=== PATIENT | male | born 1940 | race Caucasian/White ===

== ENCOUNTER 2017-08-18 10:37 | Inpatient (IN) | payer MEDICARE, MEDICAID ==
[~2017-08-18] VITALS: Ht 193 cm; Wt 114.8 kg
[~2017-08-18 10:37] MED LIST: ALEVE220 M2 PO; ATENOLOL25 MG PO; AUGMENTIN875TAB OR; AUGMENTIN875TAB PO; DAPSONE100 MG PO; DICLOFENAC SODI75 MG PO; FISH OIL1000 MG PO; FLORASTOR250 M1 PO; GAUZE; GLIMEPIRIDE4 MG PO; INSULIN; LANTUS100 MG/ML; LANTUS100 MG/ML SC; LISINOPRIL10 MG PO; MECLIZINE12.5 MG PO; METFORMIN500 MG PO; MULTIVITAMI9 PO; PERCOCET 5/325M1 TAB PO; SANTYL250 MG/GM EX; SILVADENE1 % EX; SIMVASTATIN10 MG PO; ZITHROMAX500 MG PO; [UNRECOGNIZED DRUG - OTHER]; [UNRECOGNIZED DRUG - OTHER] PO
--- NOTE | 2017-08-18 10:41 | NUR ---
PT TO CT VIA STRETCHER.
[2017-08-18 11:17] LABS: HEMATOCRIT 45.3 % (39.0-50.0); HEMOGLOBIN 15.2 g/dl (14.0-18.0); IMMATURE GRANULOCYTES 0.4 % (0.0-1.0); MEAN CELL VOLUME 91.9 fL CALC (80.0-100.0); MEAN CORPUSCULAR HGB 30.8 pG CALC (26.0-32.0); MEAN CORPUSCULAR HGB CONC 33.6 g/L CALC (32.0-36.0); NEUT# 5.8 thou/uL (1.82-7.42); RED BLOOD COUNT 4.93 mill/uL (4.70-6.10); RED CELL DISTRI WIDTH 12.7 % (11.5-15.5)
[2017-08-18 11:37] LABS: ANION GAP 17 (6-22 (CALC)); BUN 17 mg/dL (8-23); BUN/CREATININE RATIO 15 (12-20 (CALC)); CALCIUM 9.6 mg/dL (8.4-10.2); CARBON DIOXIDE 25 mmol/l (22-30); CHLORIDE 107 mmol/l (95-108); CREATININE 1.1 mg/dL (0.7-1.3); GFR > 60 ML/MIN (>=60 (CALC)); GFR FOR AFR.AMER. > 60 ML/MIN (>=60 (CALC)); GLUCOSE 145 mg/dL (82-115); POTASSIUM 4.6 mmol/l (3.5-5.1); SODIUM 143 mmol/l (137-146)
--- NOTE | 2017-08-18 11:41 | NUR ---
TELESTROKE COMPLETED VIA VISUAL AND USE OF TELEPHONE FOR VERBAL COMMUNICATION.
[2017-08-18 11:46] LABS: PROTHROMBIN TIME 10.9 SECONDS (9.0-12.5)
--- NOTE | 2017-08-18 11:53 | NUR ---
PT SEEN TO BE FORGETFUL WITH TELESTROKE EVALUATION, STRUGGLING TO REMEMBER THINGS AND ALSO VAGUE IN ANSWERS. PHYSICIAN AT [facility] RECOMMENDS ADMISSION.
--- NOTE | 2017-08-18 11:53 | NUR ---
SBAR PRINTED TO FLOOR
[2017-08-18] MEDS ORDERED: LANTUS100 UNIT/M SC (12:32)
[2017-08-18] MEDS ORDERED: ATORVASTATIN CA80 MG PO (12:32)
[2017-08-18] MEDS ORDERED: METFORMIN500 MG PO (12:33)
[2017-08-18] MEDS ORDERED: LEVOTHYROXIN50 MCG PO (12:33)
[2017-08-18 13:15] VITALS: BP 175/96
--- NOTE | 2017-08-18 13:15 | NUR ---
PT ARRIVED TO ROOM 291 DX:TIA VIA STRETCHER. PT UP TO BED FROM STRETCHER WITH STANDBY ASSISTANCE. ASSESSMENT COMPLETED. B/P 175/96. TELE MONITOR IN PLACE, AFIB [address] LEVINE ON FLOOR. WILL AWAIT ORDERS. PT ORIENTED TO ROOM AND CALL LIGHT SYSTEM. PT STATES HE IS HUNGRY. WILL CALL [employer] FOR TRAY. WILL COTINUE TO MONITOR. CALL LIGHT IN REACH.
--- NOTE | 2017-08-18 13:25 | NUR ---
PT TAKEN TO ROOM 291 WITHOUT INCIDENT, REPORT WAS TO SHAI.
--- NOTE | 2017-08-18 13:40 | NUR ---
O2 SAT ON ROOM AIR IS 98%.
[2017-08-18 14:55] VITALS: BP 166/89
--- NOTE | 2017-08-18 16:01 | NUR ---
PT C/O BED AND REQUESTING A NEW ONE. PT TRANSFERED TO RECLINER CHAIR FOR CHANGE OF BEDS IN ROOM. ASSISTED STAFF X1 WITH WALKER. RIGHT SIDE WEAKNESS NOTED. PT STATES "IT'S GETTING BETTER." PT REMAINS SEATED IN CHAIR. WILL CONTINUE TO MONITOR. CALL LIGHT IN REACH.
[2017-08-18 17:29] VITALS: BP 189/90
--- NOTE | 2017-08-18 18:17 | NUR ---
B/P 163/90 AT THIS TIME. PT MEDICATED WITH NORVASC 5MG PER DR LEVINE'S ORDER. PT PREVIOUSLY MEDICATED WITH HYDRALAZINE 10MG FOR B/P OF 189/90. PT C/O THAT RIGHT ARM AND LEG "FEEL FUNNY" ASKED PT TO DESCRIBE COMPLAINT. PT DENIES ANY TINGLING, BURNING, NUMBNESS, OR PAIN. PT STATES "FEEL LIKE I DON'T HAVE CONTROL OF THE DAMN THING" BILATERAL GRASPS ARE EQUALLY STRONG. NO CHANGES IN NEURO CHECKS SINCE ADMISSION TO FLOOR. INCREASE IN ANXIETY NOTED. PT ABLE TO FOLLOW COMMAND AND RAISE ARMS WITHOUT ANY DRIFTS. INFORMED PT OF POC IN REGARDS TO B/P. PT VERBALIZES UNDERSTANDING AND WILL NOTIFY STAFF OF ANY CHANGES. WILL CONTINUE TO MONITOR. CALL LIGHT IN REACH.
--- NOTE | 2017-08-18 19:00 | NUR ---
RECEIVED CHANGE OF SHIFT REPORT FROM ARYAN GIBBONS. PATIENT LYING IN BED AND APPEARS NOT TO BE IN ANY APPARENT ACUTE DISTRESS OR DISCOMFORT. DENIES PAIN. WILL CONTINUE TO MONITOR.
[2017-08-18 19:05] VITALS: BP 164/88
--- NOTE | 2017-08-18 19:09 | NUR ---
REPOT GIVEN AT BEDSIDE WITH LEON PRINCE. PT STATES FEELS "SOME RELIEF" TO RIGHT ARM AND LEG. NO C/O AT THIS TIME. POC REVIEWED AGAIN. PT VERBALIZES UNDERSTANDING. CALL LIGHT IN REACH.
[2017-08-18 23:24] VITALS: BP 145/56
--- NOTE | 2017-08-19 | NUR ---
PATIENT LYING IN BED AND APPEARS NOT TO BE IN ANY APPARENT ACUTE DISTRESS. WILL CONTINUE TO MONITOR.
[2017-08-19 03:57] VITALS: BP 150/65
--- NOTE | 2017-08-19 04:00 | NUR ---
NO APPARENT ACUTE CHANDES NOTED IN PATIENT'S CONDITION.
[2017-08-19 05:23] LABS: HEMATOCRIT 42.2 % (39.0-50.0); HEMOGLOBIN 14.4 g/dl (14.0-18.0); MEAN CELL VOLUME 90.6 fL CALC (80.0-100.0); MEAN CORPUSCULAR HGB 30.9 pG CALC (26.0-32.0); MEAN CORPUSCULAR HGB CONC 34.1 g/L CALC (32.0-36.0); RED BLOOD COUNT 4.66 mill/uL (4.70-6.10); RED CELL DISTRI WIDTH 12.6 % (11.5-15.5)
[2017-08-19 05:40] LABS: ANION GAP 13 (6-22 (CALC)); BUN 18 mg/dL (8-23); BUN/CREATININE RATIO 17 (12-20 (CALC)); CALCIUM 9.4 mg/dL (8.4-10.2); CARBON DIOXIDE 25 mmol/l (22-30); CHLORIDE 108 mmol/l (95-108); CREATININE 1.1 mg/dL (0.7-1.3); GFR > 60 ML/MIN (>=60 (CALC)); GFR FOR AFR.AMER. > 60 ML/MIN (>=60 (CALC)); GLUCOSE 101 mg/dL (82-115); MAGNESIUM 1.9 mg/dL (1.6-2.3); POTASSIUM 4.2 mmol/l (3.5-5.1); SODIUM 141 mmol/l (137-146)
[2017-08-19 06:07] LABS: TSH, 3RD GENERATION 6.59 uIU/mL (0.47 - 4.68)
--- NOTE | 2017-08-19 07:00 | NUR ---
RECEIVED BEDSIDE REPORT FROM SURESH QUINTERO. RESTING IN BED WITH EYES CLOSED, AWAKENS EASILY. RESPS EVEN AND UNLABORED ON O2 VIA NC, TELE MONITOR IN PLACE. DENIES PAIN OR DISCOMFORT. PLAN OF CARE DISCUSSED. SAFETY PRECAUTIONS REINFORCED. BED ALARM ON FOR SAFETY. BED IN LOWEST POSITION WITH WHEELS LOCKED. CALL LIGHT WITHIN REACH. WILL CONTINUE TO MONITOR.
[2017-08-19 07:46] VITALS: BP 130/56
--- NOTE | 2017-08-19 09:45 | NUR ---
TO MRI IN STABLE CONDITION VIA WHEELCHAIR ACCOMPANIED BY VOLUNTEER.
--- NOTE | 2017-08-19 10:12 | NUR ---
PHONE CALL FROM AL IN MRI, PT STATES HE "IS TOO BIG FOR THE MACHINE." UNABLE TO PERFORM ORDERED MRI.
--- NOTE | 2017-08-19 10:20 | NUR ---
FROM MRI VIA WHEELCHAIR ACCOMPANIED BY WHEELCHAIR. TRANSFERRED TO BED WITH 2 PERSON ASSIST. RESPS EVEN AND UNLABORED ON ROOM AIR, TELE MONITOR IN PLACE. DENIES PAIN OR DISCOMFORT. CALL LIGHT WITHIN REACH.
--- NOTE | 2017-08-19 10:45 | NUR ---
DR COATS IN WITH PT, NEW ORDERS RECEIVED.
[2017-08-19 11:30] VITALS: BP 102/61
--- NOTE | 2017-08-19 11:35 | NUR ---
TO ULTRASOUND IN STABLE CONDITION VIA WHEELCHAIR ACCOMPANIED BY VOLUNTEER.
--- NOTE | 2017-08-19 12:20 | NUR ---
FROM ULTRASOUND VIA WHEELCHAIR ACCOMPANIED BY VOLUNTEER. ASSISTED TO BED WITH 2 PERSON ASSIST. AT BEDSIDE. LUNCH TRAY SET UP. WILL CONTINUE TO MONITOR.
[2017-08-19 15:20] VITALS: BP 108/50
--- NOTE | 2017-08-19 16:44 | NUR ---
RESTING IN BED WITH EYES CLOSED, AWAKENS EASILY. RESPS EVEN AND UNLABORED ON ROOM AIR, TELE MONITOR IN PLACE. VOICES NO NEEDS AT THIS TIME. BED ALARM ON FOR SAFETY. CALL LIGHT WITHIN REACH. ENCOURAGED PT TO CALL FOR ANY NEEDS.
--- NOTE | 2017-08-19 19:00 | NUR ---
RECEIVED CHANGE OF SNIFT REPORT FROM LEON CANO. PATIENT LYING IN BED AND APPEARS NOT TO BE IN ANY APPARENT ACUTE DISTRESS OR DISCOMFORT. NO VOICED COPLAINTS AT THIS TIME. WILL CONTINUE TO MONITOR.
[2017-08-19 19:05] VITALS: BP 154/92
[2017-08-19 22:23] VITALS: BP 112/64
--- NOTE | 2017-08-20 | NUR ---
PATIENT RESTING QUIETLY WITH EYES CLOSE AND SNORING. RESPIRATION EVEN AND NONLABORED. PRBC INFUSING. NO APPARENT ACUTE DISTRESS NOTED. WILL CONTINUE YO MONITOR.
--- NOTE | 2017-08-20 04:00 | NUR ---
NO APPARENT ACUTE CHANGES NOTED IN PATIENT'S CONDITION.
[2017-08-20 04:46] VITALS: BP 151/85
[2017-08-20 06:09] LABS: HEMATOCRIT 43.2 % (39.0-50.0); HEMOGLOBIN 14.6 g/dl (14.0-18.0); MEAN CELL VOLUME 91.1 fL CALC (80.0-100.0); MEAN CORPUSCULAR HGB 30.8 pG CALC (26.0-32.0); MEAN CORPUSCULAR HGB CONC 33.8 g/L CALC (32.0-36.0); RED BLOOD COUNT 4.74 mill/uL (4.70-6.10); RED CELL DISTRI WIDTH 12.7 % (11.5-15.5)
[2017-08-20 06:27] LABS: ANION GAP 16 (6-22 (CALC)); BUN 21 mg/dL (8-23); BUN/CREATININE RATIO 18 (12-20 (CALC)); CALCIUM 9.7 mg/dL (8.4-10.2); CARBON DIOXIDE 24 mmol/l (22-30); CHLORIDE 106 mmol/l (95-108); CREATININE 1.2 mg/dL (0.7-1.3); GFR 59 ML/MIN (>=60 (CALC)); GFR FOR AFR.AMER. > 60 ML/MIN (>=60 (CALC)); GLUCOSE 136 mg/dL (82-115); POTASSIUM 4.6 mmol/l (3.5-5.1); SODIUM 141 mmol/l (137-146)
--- NOTE | 2017-08-20 07:25 | NUR ---
SHIFT CHANGE REPORT FROM ESTEBAN PRINCE SLEEPING BUT AROUSES TO VERBAL STIMULI, NO C/O DISCOMFORT AT THIS TIME, CALL RASHEED IN REACH.
[2017-08-20 08:16] VITALS: BP 141/72
[2017-08-20 12:00] VITALS: BP 139/78
--- NOTE | 2017-08-20 12:21 | NUR ---
PATIENT STATES HE HAS HAD BILAT DROP FOOT FOR > 5YRS, BUT HAS HAD NEW ONSET OF R EXTREMITY WEAKNESS. HE IS ANXIOUS TO GET "BACK TO NORMAL". SUPINE TO SIT INDEP TO STAND WITH SBA TO RW. AMB 90 FT X 2 WITH V.C.'S FOR INCREASED KNEE EXT AND LESS HYPER KNEE FLXN. UNABLE TO ACTIVELY DORSIFLX EITHER FOOT IN STANDING. ITRANSFERED TO RECLINER, SITTING UPRIGHT. INSTRUCTED IN MARCHING, KNEE EXT AND LATERAL STEP OVERS TO PRACTICE WHILE SITTING UP. LUNCH ARRIVED AND SET UP ON TRAY FOR PATIENT. CALL RASHEED AND PHONE WITHIN REACH.
--- NOTE | 2017-08-20 15:53 | NUR ---
LEFT UNIT FOR PROCEDURE AND RETURNED TO ROOM NOW, SETTLED IN RECLINER, NO C/O DISCOMFORT, SPOUSE AT BEDSIDE, CALL RASHEED IN REACH.
[2017-08-20 16:11] VITALS: BP 120/66
--- NOTE | 2017-08-20 16:55 | NUR ---
Visited pt room during rounds. Pt states that he is doing good and feeling better, not as week as when he first got to ER. Pt's was also in the room and stated that the doctor did come speak to them about new diagnosed AFib, as well as the new medications that he will be taking. Discussed the new meds and what they are for, as well as reviewed home meds. Pt did not have any additional questions or concerns regarding new diagnosis or medications.
[2017-08-20 18:55] VITALS: BP 120/76
--- NOTE | 2017-08-20 21:20 | NUR ---
PT APPEARS TO BE SLEEPING IN SUPINE POSITION;WOKE PT TO COMPLETE ASSESSMENT AND ADMINISTER SCHEDULED MEDICATIONS;PT VOICES NO COMPLAINTS OR CONCERNS;RESPIRATIONS EVEN AND UNLABORED ON RA;RIGHT SIDED WEAKNESS NOTED;#20G TO RAC INFUSING NS @ 80ML/HR WELL;TELE MONITOR IN PLACE;PEDAL PULSES DOPPLERED;CLEAR LUNGS SOUNDS;SKIN INTACT;FALL PRECAUTIONS REINFORCED AND PT EDUCATED TO CALL FOR ASSISTANCE IF NEEDED;CALL LIGHT IN REACH;WILL CONTINUE TO MONITOR
[2017-08-20 23:48] VITALS: BP 122/56
--- NOTE | 2017-08-21 00:40 | NUR ---
PT APPEARS TO BE SLEEPING WITH EYES CLOSED IN SUPINE POSITION;NO S/S OF DISTRESS NOTED;RESPIRATIONS EVEN AND UNLABORED ON RA;IV FLUIDS INFUSING WELL TO RAC;FALL PRECAUTIONS IN PLACE;URINAL AT BEDSIDE;CALL LIGHT IN REACH;WILL CONTINUE TO MONITOR
[2017-08-21 03:40] VITALS: BP 117/61
[2017-08-21 03:50] VITALS: BP 117/61
--- NOTE | 2017-08-21 03:50 | NUR ---
TONY,ER MONITOR REPORTED PT HR TO DROP LOW 36;PT SOUND ASLEEP UPON ENTERING THE ROOM;VS OBTAINED;WOKE PT AND HR IMMEDIATELY INCREASED TO 60;PT VOICES NO PAINS OR DISCOMFORTS;RESPIRATIONS EVEN AND UNLABORED ON RA;PT DENIES ANY NEEDS AT THIS TIME;FALL PRECAUTIONS IN PLACE WITH CALL LIGHT IN REACH;WILL CONTINUE TO MONITOR
[2017-08-21 07:11] VITALS: BP 157/74
--- NOTE | 2017-08-21 07:40 | NUR ---
ASSESSMENT IS COMPLETED: IV SITE IS FREE FROM REDNESS OR EDEMA. TELE MONITOR IN PLACE. NO DISTRESS NOTED. PT STATES "I JUST WANT TO SLEEP". CONTINUE TO OBSERVE AND MONITOR.
[2017-08-21 08:38] VITALS: BP 157/74
--- NOTE | 2017-08-21 08:52 | NUR ---
Pt. refused physical therapy this morning, nurse informed.
[2017-08-21 08:54] LABS: HEMOGLOBIN 13.6 g/dl (14.0-18.0); IMMATURE GRANULOCYTES 0.3 % (0.0-1.0); MEAN CELL VOLUME 91.1 fL CALC (80.0-100.0); NEUT# 5.47 thou/uL (1.82-7.42); RED BLOOD COUNT 4.39 mill/uL (4.70-6.10); RED CELL DISTRI WIDTH 12.7 % (11.5-15.5)
[2017-08-21 09:18] LABS: ANION GAP 14 (6-22 (CALC)); BUN 22 mg/dL (8-23); BUN/CREATININE RATIO 19 (12-20 (CALC)); CALCIUM 9.4 mg/dL (8.4-10.2); CARBON DIOXIDE 24 mmol/l (22-30); CHLORIDE 107 mmol/l (95-108); CREATININE 1.1 mg/dL (0.7-1.3); GFR > 60 ML/MIN (>=60 (CALC)); GFR FOR AFR.AMER. > 60 ML/MIN (>=60 (CALC)); GLUCOSE 144 mg/dL (82-115); MAGNESIUM 1.9 mg/dL (1.6-2.3); POTASSIUM 4.6 mmol/l (3.5-5.1); SODIUM 140 mmol/l (137-146)
--- NOTE | 2017-08-21 12:15 | NUR ---
PT IS SITTING IN THE CHAIR AND VISITING WITH SPOUSE WAITING ON TRANSPORT FOR REHAB, IV SITE IS FREE FROM REDNESS OR EDEMA. TELE MONITOR IN PLACE.
[2017-08-21] MEDS ORDERED: ELIQUIS5 MG PO (13:00)
[2017-08-21] MEDS ORDERED: METO25TAB PO (13:00)
[2017-08-21] MEDS ORDERED: LOSARTAN POT50 MG PO (13:00)
[2017-08-21] MEDS ORDERED: ASPIRIN ADULT L81 M2 PO (13:04)
--- NOTE | 2017-08-21 13:57 | NUR ---
PT BEING TRANSFERRED TO [facility] VIA ACCOMPANIED BY STAFF. IV SITE WAS DISCONTINUED CATHETER INTACT. TELE MONITOR INTACT AND REMOVED ALL INFORMATION GIVEN TO TRANSPORTER. CONTINUE TO OBSERVE AND MONITOR.
--- NOTE | 2017-08-21 14:00 | NUR ---
PT'S IV SITE DISCONTINEUD CATHETER INTACT. NO REDNESS OR EDEMA. ALL PAPERS SENT WITH TRANSPORT FOR PT TO REHAB. ASSISTED BY SECURITY TO GO TO HER CAR. Discharge instructions given. Patient verbalizes understanding of same. Discharged in stable condition via Wheelchair to [facility] with *Other. All belongings sent with pt.
== END 2017-08-21 13:47 | DRG 65 ==
LOC: ED 10:37 → ED-I 11:18 → ED 11:18 → ED-I 11:45 → ED 12:15 → MS2 12:16
PROVIDERS: Family Medicine; Internal Medicine; Nurse Practitioner Family; ADMIT Internal Medicine; ATTEND Internal Medicine
DX: I63.40 Cerebral infarction due to embolism of unspecified cerebral artery (principal); G81.91 Hemiplegia, unspecified affecting right dominant side; E11.65 Type 2 diabetes mellitus with hyperglycemia; I48.91 Unspecified atrial fibrillation; R13.10 Dysphagia, unspecified; E03.9 Hypothyroidism, unspecified; E66.9 Obesity, unspecified; R47.01 Aphasia; R40.2432 Glasgow coma scale score 3-8, at arrival to emergency department; I10 Essential (primary) hypertension; I25.10 Atherosclerotic heart disease of native coronary artery without angina pectoris; M15.9 Polyosteoarthritis, unspecified; E78.5 Hyperlipidemia, unspecified; I65.23 Occlusion and stenosis of bilateral carotid arteries; I65.03 Occlusion and stenosis of bilateral vertebral arteries; F40.240 Claustrophobia; R20.0 Anesthesia of skin; Z95.1 Presence of aortocoronary bypass graft; Z95.820 Peripheral vascular angioplasty status with implants and grafts; Z79.4 Long term (current) use of insulin; Z68.30 Body mass index [BMI] 30.0-30.9, adult; Z91.11 Patient's noncompliance with dietary regimen; Z91.14 Patient's other noncompliance with medication regimen; R27.0 Ataxia, unspecified
CPT/HCPCS: J1160; Q9967

== ENCOUNTER 2018-06-19 10:00 | Outpatient (RCR) | payer MEDICARE, MEDICAID ==
[~2018-06-19 10:00] MED LIST changes: +ASPIRIN ADULT L81 M2 PO; +ATORVASTATIN CA80 MG PO; +ELIQUIS5 MG PO; +LANTUS100 UNIT/M SC; +LEVOTHYROXIN50 MCG PO; +LOSARTAN POT50 MG PO; +METO25TAB PO
== END 2018-07-10 11:35 | disposition home or self-care (01) ==
LOC: PT 10:00
PROVIDERS: ATTEND Psychiatry & Neurology Neurology
DX: R42 Dizziness and giddiness (principal); I63.9 Cerebral infarction, unspecified; R26.89 Other abnormalities of gait and mobility

== ENCOUNTER 2019-05-28 14:15 | Emergency (ER) | payer MEDICARE, MEDICAID ==
[~2019-05-28] VITALS: Ht 193 cm; Wt 110.0 kg
[2019-05-28 16:00] LABS: HEMATOCRIT 40.5 % (39.0-50.0); HEMOGLOBIN 13.5 g/dl (14.0-18.0); IMMATURE GRANULOCYTES 0.3 % (0.0-5.0); MEAN CELL VOLUME 91.8 fL CALC (80.0-100.0); MEAN CORPUSCULAR HGB 30.6 pG CALC (26.0-32.0); MEAN CORPUSCULAR HGB CONC 33.3 g/L CALC (32.0-36.0); NEUT# 8.08 thou/uL (1.82-7.42); RED BLOOD COUNT 4.41 mill/uL (4.70-6.10); RED CELL DISTRI WIDTH 12.4 % (11.5-15.5)
[2019-05-28 16:17] LABS: PROTHROMBIN TIME 10.9 SECONDS (9.0-12.5)
[2019-05-28 16:20] LABS: ANION GAP 13 (6-22 (CALC)); BUN 19 mg/dL (8-23); BUN/CREATININE RATIO 16 (12-20 (CALC)); CARBON DIOXIDE 26 mmol/l (22-30); CHLORIDE 107 mmol/l (95-108); CREATININE 1.2 mg/dL (0.7-1.3); GFR 58 ML/MIN (>=60 (CALC)); GFR FOR AFR.AMER. > 60 ML/MIN (>=60 (CALC)); POTASSIUM 4.9 mmol/l (3.5-5.1); SODIUM 142 mmol/l (137-146)
[2019-05-28 19:42] VITALS: BP 164/75
== END 2019-05-28 19:41 | disposition short-term general hospital (02) ==
LOC: ED 14:15
PROVIDERS: Family Medicine
DX: I63.9 Cerebral infarction, unspecified (principal); R53.1 Weakness; R29.701 NIHSS score 1; M54.2 Cervicalgia; I25.2 Old myocardial infarction; Z86.73 Personal history of transient ischemic attack (TIA), and cerebral infarction without residual deficits
CPT/HCPCS: Q9967

== ENCOUNTER 2019-09-09 09:18 | Observation (INO) | payer MEDICARE, OTHER ==
[~2019-09-09] VITALS: Ht 193 cm; Wt 87.5 kg
--- NOTE | 2019-09-09 09:27 | NUR ---
TO ROOM 9 VIA EMS STRETCHER
--- NOTE | 2019-09-09 09:30 | NUR ---
PT ARRIVED BY EMS WITH COMPLAINTS OF DIARRHEA FOR TWO WEEKS. PT IS AOX4 AND SAYS THAT HE HAS BEEN PASSING ONLY BROWN LIQUID AND HE DOES NOT RECALL WHAT COULD HAVE CAUSED IT SINCE HE DONT THINK ITS SOMETHING HE ATE. HIS ABDOMEN HAS ACTIVE BOWEL SOUNDS AND ABDOMEN NON TENDER AND SOFT. BP WITHIN NORMAL LIMITS. WILL CONTINUE TO MONITOR.
--- NOTE | 2019-09-09 09:30 | NUR ---
PT MADE AWARE OF THE NEED FOR A URINE SAMPLE. PT STATES NOT BEING ABLE TO PROVIDE AT THIS TIME.
[2019-09-09 10:22] LABS: HEMATOCRIT 38.2 % (39.0-50.0); HEMOGLOBIN 12.5 g/dl (14.0-18.0); IMMATURE GRANULOCYTES 0.5 % (0.0-5.0); MEAN CELL VOLUME 91.4 fL CALC (80.0-100.0); MEAN CORPUSCULAR HGB 29.9 pG CALC (26.0-32.0); MEAN CORPUSCULAR HGB CONC 32.7 g/L CALC (32.0-36.0); NEUT# 5.56 thou/uL (1.82-7.42); RED BLOOD COUNT 4.18 mill/uL (4.70-6.10); RED CELL DISTRI WIDTH 13.2 % (11.5-15.5)
--- NOTE | 2019-09-09 10:27 | NUR ---
PT SLEEPING AT THIS TIME. CALL LIGHT WITHIN REACH
[2019-09-09 10:28] LABS: ALBUMIN 3.4 g/dL (3.2-5.0); ALKALINE PHOSPHATASE 54 u/l (38-126); ANION GAP 13 (6-22 (CALC)); BILIRUBIN, TOTAL 0.5 mg/dL (0.0-1.4); BUN 14 mg/dL (8-23); BUN/CREATININE RATIO 13 (12-20 (CALC)); CARBON DIOXIDE 27 mmol/l (22-30); CHLORIDE 100 mmol/l (95-108); GFR > 60 ML/MIN (>=60 (CALC)); GFR FOR AFR.AMER. > 60 ML/MIN (>=60 (CALC)); LIPASE 31 u/l (23-300); MAGNESIUM 1.6 mg/dL (1.6-2.3); SGOT/AST 26 u/l (19-48); SODIUM 137 mmol/l (137-146); TOTAL PROTEIN 6.5 g/dL (6.3-8.2)
--- NOTE | 2019-09-09 11:25 | NUR ---
RECONNECTED PT TO EQUIPMENT, ADJUSTED PT INTO BED, MADE HIM COMFORTABLE. PT PROVIDED URINE SAMPLE. CALL LIGHT WITHIN REACH. WILL CONTINUE TO MONITOR. ADVISED PT OF WAIT TIME
[2019-09-09 12:05] LABS: URINE BILIRUBIN - DIPSTICK NEGATIVE (NEGATIVE); URINE BLOOD DIPSTICK NEGATIVE (NEGATIVE); URINE COLOR YELLOW; URINE GLUCOSE - DIPSTICK NEGATIVE (NEGATIVE); URINE KETONE NEGATIVE (NEGATIVE); URINE LEUK ESTERASE NEGATIVE (NEGATIVE); URINE NITRITE - DIPSTICK NEGATIVE (Negative); URINE PH 5.5 (4.5-8.0); URINE PROTEIN - DIPSTICK NEGATIVE (NEG-TRACE); URINE SPECIFIC GRAVITY <=1.005; URINE UROBILINOGEN - DIPSTICK 0.2 E.U./dL (0.2)
--- NOTE | 2019-09-09 12:30 | NUR ---
PATIENT RESTING AWAITNG RADIOLOY AND LAB RESULTS. PATIENT DENIES ANY PAIN OR DISCOMFORT AT THIS TIME
--- NOTE | 2019-09-09 13:30 | NUR ---
report called to [facility]. pATIENT DENIES ANY PAIN OR DISCOMFORT AT THIS TIME
--- NOTE | 2019-09-09 13:37 | NUR ---
PT TRANSPORTED TO [facility] IN NO DISTRESS AND IN STABLE CONDITION.
--- NOTE | 2019-09-09 13:37 | NUR ---
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 AND REASON FOR ADMISSION, HOWEVER WHILE ASSESSING PATIENT HE HAD A LARGE/LOOSE BROWN BM;PT DENIES ANY CURRENT PAIN OR DISCOMFORTS,PAIN SCALE AND REPORTING EDUCATED;RESPIRATIONS EVEN AND UNLABORED,SHALLOW ON RA,CLEAR LUNG SOUNDS NOTED;ABDOMEN SOFT ON PALPATION AND ACTIVE IN ALL 4 QUADRANTS;STRONG PEDAL PULSES WITH +1 EDEMA NOTED TO BLE;ENCOURAGED ELEVATION OF BLE;EMS #20G TO LEFT WRIST INFUSING ABX WITH EASE, NS TO BE STARTED @ 100ML/HR PER ORDER;FALL AND ALLERGY BAND APPLIED TO RIGHT HAND;PT DENIES ANY ADDITIONAL NEEDS AND IS ENCOURAGED TO CALL FOR ASSISTANCE IF NEEDED;BED IN THE LOWEST POSITION AND BED ALARM ON FOR SAFETY;CALL LIGHT IN REACH;WILL CONTINUE TO MONITOR
[2019-09-09 13:53] VITALS: BP 125/73
[2019-09-09 16:14] VITALS: BP 129/65
--- NOTE | 2019-09-09 18:00 | NUR ---
PT RESTING AT BEDSIDE EATING DINNER;RESPIRATIONS EVEN AND UNLABORED ON RA;PT DENIES ANY CURRENT PAIN OR DISCOMFORTS;IV FLUIDS INFUSING TO LEFT WRIST WITH EASE PER ORDER;ENCOURAGED PT TO CALL FOR ASSISTANCE IF NEEDED;FALL PRECAUTIONS REMAIN IN PLACE WITH BED ALARM ON FOR SAFETY;CALL LIGHT IN REACH;WILL CONTINUE TO MONITOR
--- NOTE | 2019-09-09 19:00 | NUR ---
REPORT FROM HARLEEN BAEZA. PT RESTING IN BED. ALERT AND ORIENTED X2. NO APPARENT DISTRESS NOTED. DENIES ANY PAIN OR DISCOMFORT. DISCUSSED POC. PT VERBALIZED UNDERSTANDING. IV SITE APPEARS HEALTHY. BED ALARM FOR SAFETY. NO CURRENT WANTS OR NEEDS NOTED. CALL LIGHT WITHIN REACH. WILL CONTINUE TO MONITOR.
[2019-09-09 19:09] VITALS: BP 128/52
--- NOTE | 2019-09-09 23:11 | NUR ---
PT RESTING IN BED WITH EYES CLOSED. NO APPARENT DISTRESS NOTED. IV FLUIDS INFUSING WITHOUT DIFFICULTY. CALL LIGHT WITHIN REACH. WILL CONTINUE TO MONITOR.
--- NOTE | 2019-09-10 03:17 | NUR ---
PT ASSISTED UP TO BSC. PT VOIDED WITHOUT DIFFICULTY. ASSISTED BACK TO BED. IV FLUIDS INFUSING WITH EASE. PT DENIES ANY CURRENT WANTS OR NEEDS. CALL LIGHT WITHIN REACH. WILL CONTINUE TO MONITOR.
[2019-09-10 03:46] VITALS: BP 112/53
[2019-09-10 08:00] VITALS: BP 104/58
--- NOTE | 2019-09-10 08:00 | NUR ---
PT IS AWAKE, ALERT, ORIENTED TO SELF AND PLACE. PT UP TO BSC WITH ONE PERSON ASSIST, BEAR WEIGHT WELL BUT IS NOT WELL BALANCED. NO DISTRESS, NO COMPLAINTS, NO FURTHER EPISODES OF DIARRHEA.
--- NOTE | 2019-09-10 12:00 | NUR ---
PT CALLS FOR HELP TO BSC INSTRUCTED, SEEN TO BE ONE PERSON TRANSFER. NO REPORT OF PAIN.
[2019-09-10 16:00] VITALS: BP 156/75
--- NOTE | 2019-09-10 16:00 | NUR ---
PT CONTINUES TO CALL APPROPRIATELY TO USE BSC. NO REPORT OF PAIN OR NAUSEA.
--- NOTE | 2019-09-10 18:38 | NUR ---
PT'S CONTACTED, SHE WILL ARRIVE HERE TOMORROW LATE MORNING TO DISCUSS DISCHARGE PLANS FOR HER .
--- NOTE | 2019-09-10 19:12 | NUR ---
REPORT FROM TARIQ RN. PT SITTING UP IN BED. ALERT AND ORIENTED X2. NO APPARENT DISTRESS NOTED. DENIES ANY PAIN OR DISCOMFORT. IV SITE APPEARS HEALTHY. DISCUSSED POC. PT VERBALIZED UNDERSTANDING. CALL LIGHT WITHIN REACH. WILL CONTINUE TO MONITOR.
[2019-09-10 19:19] VITALS: BP 143/69
--- NOTE | 2019-09-10 23:11 | NUR ---
PT RESTING IN BED WITH EYE CLOSED. NO APPARENT DISTRESS NOTED. CALL LIGHT WITHIN REACH. WILL CONTINUE TO MONITOR.
--- NOTE | 2019-09-11 00:15 | NUR ---
SEVERAL ATTEMPTS TO CHANGE EMS IV SITE. PT REFUSED STATING " I AM GETTING OUT OF HERE TOMORROW" . IV SITE APPEARS HEALTHY, DRESSING CDI AND FLUSHES EASILY. EDUCATION PROVIDED. WILL CONTINUE TO MONITOR.
[2019-09-11 04:15] VITALS: BP 133/71
--- NOTE | 2019-09-11 04:16 | NUR ---
PT RESTING IN BED. NO APPARENT DISTRESS NOTED. PT DENIES ANY PAIN OR DISCOMFORT. CALL LIGHT WITHIN REACH. WILL CONTINUE TO MONITOR.
[2019-09-11 06:12] LABS: HEMATOCRIT 36.3 % (39.0-50.0); HEMOGLOBIN 11.7 g/dl (14.0-18.0); IMMATURE GRANULOCYTES 0.3 % (0.0-5.0); MEAN CELL VOLUME 92.1 fL CALC (80.0-100.0); MEAN CORPUSCULAR HGB 29.7 pG CALC (26.0-32.0); MEAN CORPUSCULAR HGB CONC 32.2 g/L CALC (32.0-36.0); NEUT# 5.22 thou/uL (1.82-7.42); RED BLOOD COUNT 3.94 mill/uL (4.70-6.10); RED CELL DISTRI WIDTH 13.2 % (11.5-15.5)
[2019-09-11 06:24] LABS: ANION GAP 12 (6-22 (CALC)); BUN 9 mg/dL (8-23); BUN/CREATININE RATIO 10 (12-20 (CALC)); CARBON DIOXIDE 24 mmol/l (22-30); CHLORIDE 107 mmol/l (95-108); GFR > 60 ML/MIN (>=60 (CALC)); GFR FOR AFR.AMER. > 60 ML/MIN (>=60 (CALC)); MAGNESIUM 1.7 mg/dL (1.6-2.3); POTASSIUM 3.7 mmol/l (3.5-5.1); SODIUM 140 mmol/l (137-146)
[2019-09-11 07:30] VITALS: BP 110/62
--- NOTE | 2019-09-11 07:30 | NUR ---
ASLEEP ON ROUNDS, AWAKENS TO NAME. ORIENTED TO PERSON AND PLACE. RESP NON-LABORD. LUNGS CLEAR THROUGOUT. ABD SOFT WITH BOWEL SOUNDS. DENIES PAIN. IV IN LEFT WRIST SITE BENIGN, NS AT KVO. DISCUSSED PLAN OF CARE. REINFORCED USE OF NELL RASHEED AND BED CONTROLS. PATIENT VERBALIZES UNDERSTANDING OF TEACHING.
--- NOTE | 2019-09-11 09:46 | NUR ---
PT WAS SEEN THIS AM FOR FUNCTIONAL ACTIVITY AND G.T. HE WAS RELUCTANT TO PARTICIPATE WITH THERAPY AND WAS AGITATED AND YELLING DURING THE COURSE OF TX, COMPLAINING ABOUT MEDICAL STAFFS COMING IN AND OUT OF HIS ROOM TO WORK ON HIM. TRIED TO PACIFY THE PT AND EXPLAINED THAT IT IS NECESSARY FOR THE STAFFS TO CHECK ON HIM HE IS IN THE HOSPITAL BEING TREATED. OBSERVED POOR SAFETY AWARENESS PT STOOD UP WITH MULTIPLE ATTEMPTS. PT AMBULATED IN THE ROOM WITH RW AND CGA WITH APPARENT HIGH STEPPAGE GAIT BILATERALLY. HE REPORTS THAT HE HAS BEEN WALKING THIS WAY FOR SEVERAL YEARS NOW AND HE USES A 2WW OR A 3WW TO AMB. AT THE END OF TX PT WAS STILL AGITATED. THERAPIST PROVIDED SBA HE GETS BACK IN THE BED TO REST. THEREX NOT DISCUSSED DUE TO PT'S REFUSAL TO CONTINUE. [facility] TODAY: 16 POINTS PT WILL BENEFIT FROM HOME HEALTH PHYSICAL THERAPY FOR CONDITIONING AND THEREX EDUCATION.
--- NOTE | 2019-09-11 12:05 | NUR ---
PATIENT IN TO SEE PATIENT. PATIENT AND SPOUSE WAITING FOR DR, HOPING PATIENT WILL BE DC'D TODAY.
[2019-09-11] MEDS ORDERED: CIPROFLOXACN500 MG PO (13:35)
[2019-09-11] MEDS ORDERED: METRONIDAZOL500 MG PO (13:36)
--- NOTE | 2019-09-11 15:10 | NUR ---
Discharge instructions given. Patient verbalizes understanding of same. Discharged in stable condition via Wheelchair to Home with spouse. All belongings sent with pt.
== END 2019-09-11 15:03 | disposition home health service (06) ==
LOC: ED 09:18 → ED-I 11:57 → ED 12:17 → MS2 12:18
PROVIDERS: Nurse Practitioner Family; ADMIT Internal Medicine; ATTEND Internal Medicine
DX: K50.10 Crohn's disease of large intestine without complications (principal); I10 Essential (primary) hypertension; E11.9 Type 2 diabetes mellitus without complications; I25.10 Atherosclerotic heart disease of native coronary artery without angina pectoris; I48.91 Unspecified atrial fibrillation; E03.9 Hypothyroidism, unspecified; M89.49 Other hypertrophic osteoarthropathy, multiple sites; I25.2 Old myocardial infarction; Z87.891 Personal history of nicotine dependence; Z79.4 Long term (current) use of insulin; Z95.1 Presence of aortocoronary bypass graft; Z86.73 Personal history of transient ischemic attack (TIA), and cerebral infarction without residual deficits; Z79.01 Long term (current) use of anticoagulants
CPT/HCPCS: G0328; G0378

== ENCOUNTER 2020-02-17 22:21 | Emergency (ER) | payer MEDICARE, OTHER ==
[~2020-02-17 22:21] MED LIST changes: +CIPROFLOXACN500 MG PO; +METRONIDAZOL500 MG PO
[2020-02-17 22:57] LABS: URINE BILIRUBIN - DIPSTICK NEGATIVE (NEGATIVE); URINE BLOOD DIPSTICK LARGE (NEGATIVE); URINE GLUCOSE - DIPSTICK >=1000 mg/dL (NEGATIVE); URINE KETONE NEGATIVE (NEGATIVE); URINE LEUK ESTERASE NEGATIVE (NEGATIVE); URINE PROTEIN - DIPSTICK NEGATIVE (NEG-TRACE)
[2020-02-17] MEDS ORDERED: NEURONTIN100 MG PO (23:00)
[2020-02-17] MEDS ORDERED: TAMSULOSIN HCL0.4 MG PO (23:01)
[2020-02-17] MEDS ORDERED: LASIX40 MG PO (23:02)
[2020-02-17] MEDS ORDERED: FOLIC ACID400 MC1 PO (23:03)
[2020-02-17] MEDS ORDERED: ATORVASTATIN CA80 MG PO (23:03)
[2020-02-17 23:09] LABS: URINE COLOR ORANGE; URINE NITRITE - DIPSTICK NEGATIVE (Negative); URINE RBC 25-50 RBC/hpf (0-5)
[2020-02-17 23:10] LABS: URINE SQUAMOUS EPITHELIAL CELL FEW EPI/hpf (0-FEW)
[2020-02-17 23:34] LABS: CREATININE 1.4 mg/dL (0.7-1.3); POTASSIUM 3.9 mmol/l (3.5-5.1)
[2020-02-17] MEDS ORDERED: TAMSULOSIN0.4 MG PO ×2 (23:49)
[2020-02-17] MEDS ORDERED: BACTRIM DS1 TAB PO ×2 (23:49)
[2020-02-18 00:05] VITALS: BP 134/61
== END 2020-02-18 00:05 | disposition home or self-care (01) ==
LOC: ED 22:21
PROVIDERS: Family Medicine
PROC: 0T9B70Z Drainage of Bladder with Drainage Device, Via Natural or Artificial Opening (ICD-10-PCS; principal; 2020-02-17)
DX: N40.1 Benign prostatic hyperplasia with lower urinary tract symptoms (principal); N13.8 Other obstructive and reflux uropathy; I25.2 Old myocardial infarction; Z95.1 Presence of aortocoronary bypass graft; Z86.73 Personal history of transient ischemic attack (TIA), and cerebral infarction without residual deficits

== ENCOUNTER 2020-02-20 11:37 | Emergency (ER) | payer MEDICARE, OTHER ==
[~2020-02-20 11:37] MED LIST changes: +BACTRIM DS1 TAB PO; +FOLIC ACID400 MC1 PO; +LASIX40 MG PO; +NEURONTIN100 MG PO; +TAMSULOSIN HCL0.4 MG PO; +TAMSULOSIN0.4 MG PO
[2020-02-20 12:20] VITALS: BP 114/70
== END 2020-02-20 12:22 | disposition home or self-care (01) ==
LOC: ED 11:37
DX: T83.091A Other mechanical complication of indwelling urethral catheter, initial encounter (principal); Y84.6 Urinary catheterization as the cause of abnormal reaction of the patient, or of later complication, without mention of misadventure at the time of the procedure

== ENCOUNTER 2020-02-21 10:01 | Emergency (ER) | payer MEDICARE, OTHER ==
[2020-02-21 10:40] VITALS: BP 153/75
== END 2020-02-21 10:42 | disposition home or self-care (01) ==
LOC: ED 10:01
DX: T83.098A Other mechanical complication of other urinary catheter, initial encounter (principal); I25.2 Old myocardial infarction; Y84.6 Urinary catheterization as the cause of abnormal reaction of the patient, or of later complication, without mention of misadventure at the time of the procedure; Z95.1 Presence of aortocoronary bypass graft; Z86.73 Personal history of transient ischemic attack (TIA), and cerebral infarction without residual deficits

== ENCOUNTER 2020-05-23 09:16 | Emergency (ER) | payer MEDICARE, OTHER ==
[~2020-05-23] VITALS: Ht 193 cm; Wt 110.0 kg
[2020-05-23 10:14] LABS: URINE BILIRUBIN - DIPSTICK NEGATIVE (NEGATIVE); URINE BLOOD DIPSTICK LARGE (NEGATIVE); URINE COLOR YELLOW; URINE GLUCOSE - DIPSTICK 250 mg/dL (NEGATIVE); URINE KETONE NEGATIVE (NEGATIVE); URINE PROTEIN - DIPSTICK TRACE mg/dL (NEG-TRACE); URINE SPECIFIC GRAVITY 1.015; URINE UROBILINOGEN - DIPSTICK 0.2 E.U./dL (0.2)
[2020-05-23 10:18] LABS: URINE LEUK ESTERASE MODERATE (NEGATIVE); URINE NITRITE - DIPSTICK POSITIVE (Negative)
[2020-05-23 10:19] LABS: URINE BACTERIA MANY hpf; URINE EPITHELIAL CELLS FEW EPI/hpf (0-FEW)
[2020-05-23] MEDS ORDERED: CEPHALEXIN500 M1 PO ×2 (10:41)
[2020-05-23 11:15] VITALS: BP 108/58
== END 2020-05-23 11:30 | disposition home or self-care (01) ==
LOC: ED 09:16
PROVIDERS: Family Medicine
PROC: 0T9B70Z Drainage of Bladder with Drainage Device, Via Natural or Artificial Opening (ICD-10-PCS; principal; 2020-05-23)
DX: R33.9 Retention of urine, unspecified (principal); N39.0 Urinary tract infection, site not specified; B95.7 Other staphylococcus as the cause of diseases classified elsewhere; E11.9 Type 2 diabetes mellitus without complications; F17.200 Nicotine dependence, unspecified, uncomplicated; I25.2 Old myocardial infarction; Z95.1 Presence of aortocoronary bypass graft; Z79.4 Long term (current) use of insulin; Z86.73 Personal history of transient ischemic attack (TIA), and cerebral infarction without residual deficits

== ENCOUNTER 2020-06-26 16:45 | Emergency (ER) | payer MEDICARE, OTHER ==
[~2020-06-26] VITALS: Ht 193 cm; Wt 100.0 kg
[~2020-06-26 16:45] MED LIST changes: +CEPHALEXIN500 M1 PO
[2020-06-26 18:36] LABS: URINE BILIRUBIN - DIPSTICK NEGATIVE (NEGATIVE); URINE BLOOD DIPSTICK SMALL (NEGATIVE); URINE COLOR YELLOW; URINE GLUCOSE - DIPSTICK >=1000 mg/dL (NEGATIVE); URINE KETONE NEGATIVE (NEGATIVE); URINE LEUK ESTERASE NEGATIVE (NEGATIVE); URINE NITRITE - DIPSTICK NEGATIVE (Negative); URINE PROTEIN - DIPSTICK TRACE mg/dL (NEG-TRACE); URINE SPECIFIC GRAVITY 1.025; URINE UROBILINOGEN - DIPSTICK 0.2 E.U./dL (0.2)
[2020-06-26] MEDS ORDERED: TAMSULOSIN0.4 MG PO ×2 (18:56)
[2020-06-26 19:02] VITALS: BP 160/82
== END 2020-06-26 19:08 | disposition home or self-care (01) ==
LOC: ED 16:45
DX: Z46.6 Encounter for fitting and adjustment of urinary device (principal); E11.9 Type 2 diabetes mellitus without complications; F17.200 Nicotine dependence, unspecified, uncomplicated; I25.2 Old myocardial infarction; Z86.73 Personal history of transient ischemic attack (TIA), and cerebral infarction without residual deficits; Z95.1 Presence of aortocoronary bypass graft

== ENCOUNTER 2020-06-30 12:33 | Emergency (ER) | payer MEDICARE, OTHER ==
[~2020-06-30] VITALS: Ht 193 cm; Wt 118.2 kg
[2020-06-30 13:43] LABS: URINE BILIRUBIN - DIPSTICK NEGATIVE (NEGATIVE); URINE BLOOD DIPSTICK SMALL (NEGATIVE); URINE COLOR YELLOW; URINE GLUCOSE - DIPSTICK >=1000 mg/dL (NEGATIVE); URINE KETONE NEGATIVE (NEGATIVE); URINE LEUK ESTERASE NEGATIVE (NEGATIVE); URINE NITRITE - DIPSTICK NEGATIVE (Negative); URINE PROTEIN - DIPSTICK NEGATIVE (NEG-TRACE); URINE SPECIFIC GRAVITY <=1.005; URINE UROBILINOGEN - DIPSTICK 0.2 E.U./dL (0.2)
[2020-06-30 13:50] LABS: URINE EPITHELIAL CELLS FEW EPI/hpf (0-FEW)
[2020-06-30 14:19] VITALS: BP 138/79
== END 2020-06-30 15:40 | disposition home or self-care (01) ==
LOC: ED 12:33
PROVIDERS: Family Medicine
PROC: 0T9B70Z Drainage of Bladder with Drainage Device, Via Natural or Artificial Opening (ICD-10-PCS; principal; 2020-06-30)
DX: R33.9 Retention of urine, unspecified (principal); E11.9 Type 2 diabetes mellitus without complications; I25.2 Old myocardial infarction; F17.200 Nicotine dependence, unspecified, uncomplicated; Z86.73 Personal history of transient ischemic attack (TIA), and cerebral infarction without residual deficits; Z95.1 Presence of aortocoronary bypass graft

== ENCOUNTER 2020-07-06 11:06 | Emergency (ER) | payer MEDICARE, OTHER ==
[~2020-07-06] VITALS: Ht 193 cm; Wt 90.9 kg
[2020-07-06] MEDS ORDERED: ELIQUIS5 MG PO (12:31)
[2020-07-06] MEDS ORDERED: FINASTERIDE5 MG PO (12:31)
[2020-07-06] MEDS ORDERED: GLIMEPIRIDE4 MG PO (12:31)
[2020-07-06] MEDS ORDERED: ATORVASTATIN CA80 MG PO (12:31)
[2020-07-06] MEDS ORDERED: LEVOTHYROXINE50 MCG PO (12:32)
[2020-07-06] MEDS ORDERED: LASIX 40 MG TAB40 MG PO (12:32)
[2020-07-06] MEDS ORDERED: TAMSULOSIN HCL0.4 MG PO (12:33)
[2020-07-06] MEDS ORDERED: LEVEMIR FL100 UNIT/M SC (12:36)
[2020-07-06 13:10] VITALS: BP 110/80
== END 2020-07-06 13:10 | disposition home or self-care (01) ==
LOC: ED 11:06
PROC: 0T2BX0Z Change Drainage Device in Bladder, External Approach (ICD-10-PCS; principal; 2020-07-06)
DX: T83.89XA Other specified complication of genitourinary prosthetic devices, implants and grafts, initial encounter (principal); N40.0 Benign prostatic hyperplasia without lower urinary tract symptoms; E11.9 Type 2 diabetes mellitus without complications; I25.2 Old myocardial infarction; F17.200 Nicotine dependence, unspecified, uncomplicated; Y84.6 Urinary catheterization as the cause of abnormal reaction of the patient, or of later complication, without mention of misadventure at the time of the procedure; Z86.73 Personal history of transient ischemic attack (TIA), and cerebral infarction without residual deficits; Z95.1 Presence of aortocoronary bypass graft; Z79.4 Long term (current) use of insulin

== ENCOUNTER 2020-07-17 15:05 | Emergency (ER) | payer MEDICARE, OTHER ==
[~2020-07-17] VITALS: Ht 193 cm; Wt 90.0 kg
[~2020-07-17 15:05] MED LIST changes: +FINASTERIDE5 MG PO; +LASIX 40 MG TAB40 MG PO; +LEVEMIR FL100 UNIT/M SC; +LEVOTHYROXINE50 MCG PO
[2020-07-17 16:29] VITALS: BP 165/77
== END 2020-07-17 16:40 | disposition home or self-care (01) ==
LOC: ED 15:05
DX: T83.038A Leakage of other urinary catheter, initial encounter (principal); N40.1 Benign prostatic hyperplasia with lower urinary tract symptoms; E11.9 Type 2 diabetes mellitus without complications; I25.2 Old myocardial infarction; Y84.6 Urinary catheterization as the cause of abnormal reaction of the patient, or of later complication, without mention of misadventure at the time of the procedure; Z86.73 Personal history of transient ischemic attack (TIA), and cerebral infarction without residual deficits; Z79.4 Long term (current) use of insulin; Z95.1 Presence of aortocoronary bypass graft

== ENCOUNTER 2020-07-19 10:13 | Emergency (ER) | payer MEDICARE, OTHER ==
[~2020-07-19] VITALS: Ht 193 cm; Wt 86.0 kg
[2020-07-19 11:44] VITALS: BP 140/81
== END 2020-07-19 11:44 | disposition home or self-care (01) ==
LOC: ED 10:13
DX: T83.031A Leakage of indwelling urethral catheter, initial encounter (principal); E11.9 Type 2 diabetes mellitus without complications; I25.2 Old myocardial infarction; F17.200 Nicotine dependence, unspecified, uncomplicated; Y84.6 Urinary catheterization as the cause of abnormal reaction of the patient, or of later complication, without mention of misadventure at the time of the procedure; Z86.73 Personal history of transient ischemic attack (TIA), and cerebral infarction without residual deficits; Z95.1 Presence of aortocoronary bypass graft; Z79.4 Long term (current) use of insulin

== ENCOUNTER 2020-08-10 20:59 | Observation (INO) | payer MEDICARE, OTHER ==
[~2020-08-10] VITALS: Ht 193 cm; Wt 109.0 kg
--- NOTE | 2020-08-10 21:00 | NUR ---
PT ARRIVED VIA DCFR WITH IVF INFUSING (GIVEN 250 ML BOLUS). PT HAS INDWELLING MAURER WITH THICK/CLOUDY URINE. PT INCONT OF LIQUID DIARRHEA.
[2020-08-10 21:49] LABS: URINE BILIRUBIN - DIPSTICK NEGATIVE (NEGATIVE); URINE BLOOD DIPSTICK MODERATE (NEGATIVE); URINE COLOR YELLOW; URINE GLUCOSE - DIPSTICK NEGATIVE (NEGATIVE); URINE KETONE NEGATIVE (NEGATIVE); URINE PROTEIN - DIPSTICK 30 mg/dL (NEG-TRACE); URINE SPECIFIC GRAVITY 1.015; URINE UROBILINOGEN - DIPSTICK 0.2 E.U./dL (0.2)
[2020-08-10 21:51] LABS: URINE LEUK ESTERASE MODERATE (NEGATIVE); URINE NITRITE - DIPSTICK POSITIVE (Negative)
[2020-08-10 21:52] LABS: URINE BACTERIA FEW hpf; URINE WBC TNTC WBC/hpf (0-5)
[2020-08-10 21:52] LABS: HEMATOCRIT 40.3 % (39.0-50.0); HEMOGLOBIN 13.1 g/dl (14.0-18.0); IMMATURE GRANULOCYTES 0.7 % (0.0-5.0); MEAN CELL VOLUME 90.4 fL CALC (80.0-100.0); MEAN CORPUSCULAR HGB 29.4 pG CALC (26.0-32.0); MEAN CORPUSCULAR HGB CONC 32.5 g/dL CAL (32.0-36.0); NEUT# 11.58 thou/uL (1.82-7.42); RED BLOOD COUNT 4.46 mill/uL (4.70-6.10); RED CELL DISTRI WIDTH 12.9 % (11.5-15.5)
[2020-08-10 22:09] LABS: ALBUMIN 3.6 g/dL (3.2-5.0); ALKALINE PHOSPHATASE 62 u/l (38-126); ANION GAP 10 (6-22 (CALC)); BILIRUBIN, TOTAL 0.7 mg/dL (0.0-1.4); BUN 23 mg/dL (8-23); BUN/CREATININE RATIO 16 (12-20 (CALC)); CARBON DIOXIDE 29 mmol/l (22-30); CHLORIDE 99 mmol/l (95-108); CREATININE 1.4 mg/dL (0.7-1.3); GFR 49 ML/MIN (>=60 (CALC)); GFR FOR AFR.AMER. 59 ML/MIN (>=60 (CALC)); POTASSIUM 4.4 mmol/l (3.5-5.1); SGOT/AST 16 u/l (19-48); SODIUM 133 mmol/l (137-146)
[2020-08-10 22:21] LABS: MYOGLOBIN 154 ng/mL (0 - 121)
--- NOTE | 2020-08-10 22:53 | NUR ---
ED CALLS FOR ROOM ASSIGNMENT, ROOM 270 ASSIGNED TO PT.
--- NOTE | 2020-08-10 23:40 | NUR ---
TELEPHONE REPORT RECEIVED FROM Tony FLORENCE RN IN ED. ROOM 270 PREPARED TO RECEIVE PT.
--- NOTE | 2020-08-10 23:45 | NUR ---
REPORT TO FLOOR.
[2020-08-11 00:07] VITALS: BP 117/58
--- NOTE | 2020-08-11 00:07 | NUR ---
PT ARRIVES TO UNIT AT 0007 VIA WHEEL CHAIR, ACCOMPANIED BY Piper DYER RN. TAKEN TO ROOM 270.
--- NOTE | 2020-08-11 00:08 | NUR ---
TO FLOOR VIA W/C WITH ORIGINAL MAURER. EMPTIED FOR 500 CC.
--- NOTE | 2020-08-11 00:42 | NUR ---
ADMISSION AND PHYSICAL ASSESMENT COMPLETE. PT IS PLEASANT AND COOPERATIVE. DENIES PAIN OR DISCOMFORT. MAURER IN PLACE. PT IS UNABLE TO REPORT WHY HE HAS MAURRE IN PLACE. STATES "I WAS SUPPOSED TO GO TO [place] TOMORROW AND GET IT REMOVED." MAURER OUTPUT IS CLOUDY AND MANLEY COLORED. DRAINING TO GRAVITY. TUBING SECURED, UNKINKED, AND UNOBSTRUCTED. PT DENIES NEEDS AT THIS TIME. REQUEST LIGHTS TURNED OFF AND DOOR CLOSED SO HE CAN SLEEP. CALL RASHEED WITHIN REACH, AGREES TO CALL PRN.
--- NOTE | 2020-08-11 01:51 | NUR ---
PT APPEARS TO BE SLEEPING COMFORTABLY, LAYING IN BED, EYES CLOSED, RESPIRATIONS REGULAR AND UNLABORED. NO APPARENT DISTRESS. CALL RASHEED REMAINS WITHIN REACH.
--- NOTE | 2020-08-11 03:20 | NUR ---
IV SITE FOUND DISLODGED. CATHETER INTACT. DRESSING APPLIED TO SITE. NEW IV SITE STARTED TO R-FA 22G, X1 ATTEMPT. PT TOLERATED WELL.
[2020-08-11 03:46] VITALS: BP 118/72
--- NOTE | 2020-08-11 05:28 | NUR ---
HEMODYNAMICS STABLE. PHYSICAL ASSESMENT REMAINS WITHIN BASELINE WITH NO SIGNIFICANT CHANGES. PT RESTING IN BED COMFORTABLY. DENIES ANY FURTHER NEEDS AT THIS TIME. CALL RASHEED WITHIN REACH, AGREES TO CALL PRN.
[2020-08-11 06:41] LABS: HEMATOCRIT 41.7 % (39.0-50.0); HEMOGLOBIN 13.6 g/dl (14.0-18.0); MEAN CELL VOLUME 90.7 fL CALC (80.0-100.0); MEAN CORPUSCULAR HGB 29.6 pG CALC (26.0-32.0); MEAN CORPUSCULAR HGB CONC 32.6 g/dL CAL (32.0-36.0); RED BLOOD COUNT 4.6 mill/uL (4.70-6.10)
[2020-08-11 06:55] LABS: ANION GAP 12 (6-22 (CALC)); BUN 20 mg/dL (8-23); BUN/CREATININE RATIO 16 (12-20 (CALC)); CALCULATED LDLCHOLESTEROL 133 mg/dL (62-129 (CALC)); CARBON DIOXIDE 27 mmol/l (22-30); CHLORIDE 102 mmol/l (95-108); CHOLESTEROL HDL RATIO 5.7 (<4.4 (CALC)); CREATININE 1.3 mg/dL (0.7-1.3); GFR 53 ML/MIN (>=60 (CALC)); GFR FOR AFR.AMER. > 60 ML/MIN (>=60 (CALC)); HDL CHOLESTEROL 34 mg/dL (>=40); MAGNESIUM 1.9 mg/dL (1.6-2.3); POTASSIUM 4.2 mmol/l (3.5-5.1); SODIUM 137 mmol/l (137-146); TOTAL CHOLESTEROL 195 mg/dl (0-199); TOTAL TRIGLYCERIDES 137 mg/dl (30-149); VLDL CHOLESTROL 27 mg/dl (0-38 (CALC))
[2020-08-11 07:48] VITALS: BP 139/74
--- NOTE | 2020-08-11 07:48 | NUR ---
PATIENT IN BED AWAKE ALERT TO NAME AND PLACE AT THIS TIME. MAURER CATH PATENT AND DRAINING PALE CLOUDY URINE. SIDERAILS UP X2 CALL LIGHT NEAR. PATIENT DENIES ANY PAIN AND STATES IT IS A 0 OUT OF A SCALE OF 0-10. NO OTHER NEEDS VOICED AT THIS TIME.
--- NOTE | 2020-08-11 08:17 | NUR ---
AT BEDSIDE DISCUSSING POC.
--- NOTE | 2020-08-11 12:10 | NUR ---
PATIENT IN BED AT THIS TIME. STATES NO PAIN MAURER PATENT AND DRAINING, SIDERAILS UP X 2 CALL LIGHT NEAR. DENIES ANY NEEDS.
--- NOTE | 2020-08-11 14:25 | NUR ---
PHYSICAL THERAPY AT BEDSIDE WORKING WITH PT.
[2020-08-11 15:25] VITALS: BP 132/63
--- NOTE | 2020-08-11 15:50 | NUR ---
PATIENT IN BED AT THIS TIME. DENIES ANY NEEDS CALL LIGHT NEAR SIDERAILS UP, MAURER PATENT AND DRAINING CLOUDY YELLOW URINE. DENIES ALL OTHER NEEDS.
--- NOTE | 2020-08-11 19:00 | NUR ---
REPORT RECEIVED FROM Rg LUONG RN, CARE OF PT ASSUMED AT THIS TIME.
[2020-08-11 19:10] VITALS: BP 145/80
--- NOTE | 2020-08-11 21:00 | NUR ---
PT RESTING IN BED, WATCHING TV. PHYSICAL ASSESMENT COMPLETE. MAURER CATHETER DRAINING TO GRAVITY. OUTPUT YELLOW, SLIGHTLY CLOUDY. IMPROVED SINCE INITIAL ASSESMENT UPON ADMISSION. TUBING IS SECURED, UNKINKED, AND UNOBSTRUCTED. FINGER STICK GLUCOSE 235 mg/dl. SLIDING SCALE HUMALOG AND SCHEDULED LEVEMIR ADMINISTERED. SCHEDULED MEDICATIONS ADMINISTERED. SEE E-MAR. HS SNACK PROVIDED. PLAN OF CARE REVIEWED, PT VERBLAIZES UNDERSTANDING AND DENIES QUESTIONS. PT DENIES FURTHER NEEDS AT THIS TIME. CALL RASHEED WITHIN REACH, AGREES TO CALL PRN.
--- NOTE | 2020-08-11 21:55 | NUR ---
Felicita BOLAÑOS CALLS FOR BED ASSIGNMENT, ROOM 262 ASSIGNED FOR PT. ROOM 262 PREPARED BY Miles STACY CNA TO RECEIVE PT.
--- NOTE | 2020-08-11 23:05 | NUR ---
TELEPHONE REPORT RECEIVED FROM Tony FLORENCE RN IN ED.
--- NOTE | 2020-08-11 23:15 | NUR ---
PT ARRIVES TO UNIT VIA WC ACCOMPANIED BY Tony FLORENCE RN. PT AMBULATORY TO BED. ORIENTED TO UNIT AND ROOM. CALL RASHEED WITHIN REACH, AGREES TO CALL PRN.
--- NOTE | 2020-08-11 23:25 | NUR ---
RX SUGGEST MERREM 1GM IV Q12H FOR RENAL DOSING. ORDER CLARIFIED W/ Rg MALIK APRN.
--- NOTE | 2020-08-12 00:15 | NUR ---
ADMISSION AND PHYSICAL ASSESMENT COMPLETE. ERYTHEMA TO LLE OUTLINED WITH MARKER. DRESSING TO L GREAT TOE C/D/I. LEFT IN PLACE PENDING WOUND CARE DOCTORS CONSULTATION PER PTS WISHES. PRN ANALGESIC ADMINISTERED FOR PAIN. SEE E-MAR. PLAN OF CARE REVIEWED. PT VERBALIZES UNDERSTANDING AND DENIES QUESTIONS. PT DENIES FURTHER NEEDS AT THIS TIME. CALL RASHEED WITHIN REACH. AGREES TO CALL PRN.
--- NOTE | 2020-08-12 01:00 | NUR ---
PT APPEARS TO BE SLEEPING COMFORTABLY. LAYING IN BED WITH EYES CLOSED. RESPIRATIONS REGULAR AND UNLABORED. NO APPARENT DISTRESS. CALL RASHEED REMAINS WITHIN REACH.
[2020-08-12 04:16] VITALS: BP 135/82
[2020-08-12 05:44] LABS: HEMATOCRIT 42.3 % (39.0-50.0); HEMOGLOBIN 13.6 g/dl (14.0-18.0); MEAN CELL VOLUME 93.8 fL CALC (80.0-100.0); MEAN CORPUSCULAR HGB 30.2 pG CALC (26.0-32.0); MEAN CORPUSCULAR HGB CONC 32.2 g/dL CAL (32.0-36.0); RED BLOOD COUNT 4.51 mill/uL (4.70-6.10); RED CELL DISTRI WIDTH 13.1 % (11.5-15.5)
--- NOTE | 2020-08-12 07:05 | NUR ---
REPORT RECEIVED FROM LEON BENOIT. PT RESTING IN BED. NO S/S OF DISTRESS AT THIS TIME. SAFETY PRECAUTIONS IN PLACE. WILL CONTINUE TO MONITOR.
--- NOTE | 2020-08-12 08:10 | NUR ---
PT RESTING IN BED, ALERT TO SELF, CONFUSED ASKING WHERE HE IS, ATTEMPTED TO REORIENTED PT. PT CALLED PER REQUEST, PT SPOKE WITH HIS . PT ASSISTED TO THE CHAIR AT BEDSIDE. RESPIRATIONS ARE EVEN AND UNLABORED ON RA. LUNGS SOUND CLEAR. PEDAL PULSES ARE STRONG. PT DENIES ANY PAIN AT THIS TIME. PT PROVIDED WITH A WARM BLANKET PER REQUEST. WILL CONTINUE TO MONITOR.
[2020-08-12 08:49] LABS: ANION GAP 11 (6-22 (CALC)); BUN 16 mg/dL (8-23); BUN/CREATININE RATIO 14 (12-20 (CALC)); CARBON DIOXIDE 27 mmol/l (22-30); CHLORIDE 104 mmol/l (95-108); CREATININE 1.1 mg/dL (0.7-1.3); GFR > 60 ML/MIN (>=60 (CALC)); GFR FOR AFR.AMER. > 60 ML/MIN (>=60 (CALC)); MAGNESIUM 1.9 mg/dL (1.6-2.3); POTASSIUM 4.6 mmol/l (3.5-5.1); SODIUM 137 mmol/l (137-146)
[2020-08-12 09:46] VITALS: BP 137/74
[2020-08-12] MEDS ORDERED: ERTAPENEM1 GM IV (10:22)
--- NOTE | 2020-08-12 12:10 | NUR ---
PT RESTING IN BED, ALERT. RESPIRATIONS ARE EVEN AND UNLABORED ON RA. NO S/S OF DISTRESS AT THIS TIME. SAFETY PRECAUTIONS IN PLACE.
[2020-08-12 14:45] VITALS: BP 151/86
--- NOTE | 2020-08-12 15:10 | NUR ---
PT RESTING IN BED, ALERT. PT PROVIDED WITH DISCHARGE INSTRUCTIONS, PT DENIES ANY QUESTIONS AT THIS TIME. IV RFA REMOVED CATHETER INTACT.
--- NOTE | 2020-08-12 15:13 | NUR ---
Discharge instructions given. Patient verbalizes understanding of same. Discharged in stable condition via Taxi to Home with staff. All belongings sent with pt.
== END 2020-08-12 15:11 | disposition home health service (06) ==
LOC: ED 20:59 → ED-I 22:42 → ED 23:09 → MS2 23:10
PROVIDERS: Emergency Medicine; Nurse Practitioner; ADMIT Internal Medicine; ATTEND Internal Medicine
DX: T83.511A Infection and inflammatory reaction due to indwelling urethral catheter, initial encounter (principal); N39.0 Urinary tract infection, site not specified; G93.49 Other encephalopathy; I10 Essential (primary) hypertension; E11.9 Type 2 diabetes mellitus without complications; I48.91 Unspecified atrial fibrillation; N40.1 Benign prostatic hyperplasia with lower urinary tract symptoms; R33.8 Other retention of urine; E03.9 Hypothyroidism, unspecified; I25.10 Atherosclerotic heart disease of native coronary artery without angina pectoris; B96.89 Other specified bacterial agents as the cause of diseases classified elsewhere; Y84.6 Urinary catheterization as the cause of abnormal reaction of the patient, or of later complication, without mention of misadventure at the time of the procedure; Z16.23 Resistance to quinolones and fluoroquinolones; Z86.73 Personal history of transient ischemic attack (TIA), and cerebral infarction without residual deficits; Z95.1 Presence of aortocoronary bypass graft; Z79.4 Long term (current) use of insulin; Z87.891 Personal history of nicotine dependence; Z79.01 Long term (current) use of anticoagulants; Z96.0 Presence of urogenital implants; Z20.828 Contact with and (suspected) exposure to other viral communicable diseases
CPT/HCPCS: J0692; J1335

== ENCOUNTER 2020-08-18 17:44 | Observation (INO) | payer MEDICARE, OTHER ==
[~2020-08-18] VITALS: Ht 193 cm; Wt 107.3 kg
[~2020-08-18 17:44] MED LIST changes: +ERTAPENEM1 GM IV
--- NOTE | 2020-08-18 17:45 | NUR ---
PT TO ROOM VIA EMS STRETCHER FOR TRIAGE
[2020-08-18 18:17] LABS: HEMATOCRIT 38.1 % (39.0-50.0); HEMOGLOBIN 12.4 g/dl (14.0-18.0); IMMATURE GRANULOCYTES 0.5 % (0.0-5.0); MEAN CELL VOLUME 90.1 fL CALC (80.0-100.0); MEAN CORPUSCULAR HGB 29.3 pG CALC (26.0-32.0); MEAN CORPUSCULAR HGB CONC 32.5 g/dL CAL (32.0-36.0); NEUT# 7.8 thou/uL (1.82-7.42); RED BLOOD COUNT 4.23 mill/uL (4.70-6.10); RED CELL DISTRI WIDTH 12.9 % (11.5-15.5)
[2020-08-18 18:23] LABS: URINE BILIRUBIN - DIPSTICK NEGATIVE (NEGATIVE); URINE BLOOD DIPSTICK SMALL (NEGATIVE); URINE COLOR YELLOW; URINE GLUCOSE - DIPSTICK NEGATIVE (NEGATIVE); URINE KETONE NEGATIVE (NEGATIVE); URINE LEUK ESTERASE NEGATIVE (NEGATIVE); URINE NITRITE - DIPSTICK NEGATIVE (Negative); URINE PROTEIN - DIPSTICK TRACE mg/dL (NEG-TRACE); URINE SPECIFIC GRAVITY 1.025; URINE UROBILINOGEN - DIPSTICK 0.2 E.U./dL (0.2)
[2020-08-18 18:25] LABS: URINE WBC 0-2 WBC/hpf (0-5)
[2020-08-18 18:35] LABS: ALBUMIN 3.5 g/dL (3.2-5.0); ALKALINE PHOSPHATASE 67 u/l (38-126); ANION GAP 12 (6-22 (CALC)); BUN 12 mg/dL (8-23); BUN/CREATININE RATIO 10 (12-20 (CALC)); CARBON DIOXIDE 26 mmol/l (22-30); CHLORIDE 99 mmol/l (95-108); CREATININE 1.2 mg/dL (0.7-1.3); GFR 58 ML/MIN (>=60 (CALC)); GFR FOR AFR.AMER. > 60 ML/MIN (>=60 (CALC)); LIPASE 46 u/l (23-300); SODIUM 133 mmol/l (137-146); TOTAL PROTEIN 6.8 g/dL (6.3-8.2)
[2020-08-18 18:40] LABS: BILIRUBIN, TOTAL 0.4 mg/dL (0.0-1.4); SGOT/AST 32 u/l (19-48)
--- NOTE | 2020-08-18 18:51 | NUR ---
REPORT GIVEN TO LEON LIRIANO.
--- NOTE | 2020-08-18 18:58 | NUR ---
HAND OFF REPRT RECEIVED BY BRYNN
--- NOTE | 2020-08-18 19:03 | NUR ---
PATIENT UNABLE TO VERIFY MEDICATION AT THIS TIME PHARMACY CONSULT ENTERED
--- NOTE | 2020-08-18 20:34 | NUR ---
HAND OFF REPORT GIVEN TO NATY, INPATIENT ROOM NOT READY TO RECEIVE PATIENT YET.
--- NOTE | 2020-08-18 21:24 | NUR ---
PT ARRIVED TO FLOOR VIA STRETCHER ACCOMPAINED BY ER STAFF. PT ALERT AND ORIENTED X1. NO APPARENT DISTRES NOTED. MAX ASSIST FROM STRETCHER TO BED. MAURER IN PLACE, PRESENT UPON ARRIVAL TO ED, PT STATES PLACED LAST WEEK. INCONTINENT OF BOWEL AT THIS TIME. LOADER TECHNICIAN IN PLACE. DISCUSSED POC AND SAFETY PRECAUTIONS. PT ORIENTED TO ROOM AND CALL LIGHT SYSTEM. CALL LIGHT WITHIN REACH. WILL CONTINUE TO MONITOR.
--- NOTE | 2020-08-18 21:24 | NUR ---
PT ARRIVED TO FLOOR VIA STRETCHER ACCOMPAINED BY ER STAFF. PT ALERT AND ORIENTED. NO APPARENT DISTRES NOTED. MAX ASSIST FROM STRETCHER TO BED. MAURER IN PLACE, PRESENT UPON ARRIVAL TO ED, PT STATES PLACED LAST WEEK. INCONTINENT OF BOWEL AT THIS TIME. OIL HOUSE ATTENDANT IN PLACE. DISCUSSED POC AND SAFETY PRECAUTIONS. PT ORIENTED TO ROOM AND CALL LIGHT SYSTEM. CALL LIGHT WITHIN REACH. WILL CONTINUE TO MONITOR.
[2020-08-18 21:30] VITALS: BP 116/60
[2020-08-18 23:41] VITALS: BP 153/64
--- NOTE | 2020-08-18 23:43 | NUR ---
PT INCONTINENT OF BOWELS. LARGE LOOSE BROWN BM NOTED. LINEN CHANGE AND PERICARE PROVIDED. PT DENIES ANY PAIN OR DISCOMFORT. CALL LIGHT WITHIN REACH. WILL CONTINUE TO MONITOR.
--- NOTE | 2020-08-19 03:04 | NUR ---
PT RESTING IN BED WITH EYES CLOSED. NO APPARENT DISTRESS NOTED. RESPIRATIONS EVEN AND UNLABORED. DRIVER'S LICENSE EXAMINER IN PLACE. MAURER PATENT DRAINING TO GRAVITY. CALL LIGHT WITHIN REACH. WILL CONTINUE TO MONITOR.
[2020-08-19 04:25] VITALS: BP 147/64
--- NOTE | 2020-08-19 05:10 | NUR ---
PT HAD X3 WATERY STOOL WITH FOUL ODOR NOTED. SAMPLE OBTAINED AND SENT TO LAB AT THIS TIME. WILL NOTIFY PHYSICIAN.
--- NOTE | 2020-08-19 05:10 | NUR ---
PT HAD X3 WATERY STOOL WITH FOWL ODOR NOTED. SAMPLE OBTAINED AND SENT TO LAB AT THIS TIME. WILL NOTIFY PHYSICIAN.
[2020-08-19 05:53] LABS: HEMOGLOBIN 12.1 g/dl (14.0-18.0); IMMATURE GRANULOCYTES 0.5 % (0.0-5.0); MEAN CELL VOLUME 90.2 fL CALC (80.0-100.0); MEAN CORPUSCULAR HGB 29.5 pG CALC (26.0-32.0); MEAN CORPUSCULAR HGB CONC 32.7 g/dL CAL (32.0-36.0); NEUT# 7.89 thou/uL (1.82-7.42); RED BLOOD COUNT 4.1 mill/uL (4.70-6.10)
[2020-08-19 05:57] LABS: ALBUMIN 3.1 g/dL (3.2-5.0); ALKALINE PHOSPHATASE 62 u/l (38-126); ANION GAP 11 (6-22 (CALC)); BILIRUBIN, TOTAL 0.4 mg/dL (0.0-1.4); BUN 10 mg/dL (8-23); BUN/CREATININE RATIO 9 (12-20 (CALC)); CARBON DIOXIDE 25 mmol/l (22-30); CHLORIDE 103 mmol/l (95-108); CREATININE 1.1 mg/dL (0.7-1.3); GFR > 60 ML/MIN (>=60 (CALC)); GFR FOR AFR.AMER. > 60 ML/MIN (>=60 (CALC)); POTASSIUM 3.7 mmol/l (3.5-5.1); SGOT/AST 32 u/l (19-48); SODIUM 135 mmol/l (137-146); TOTAL PROTEIN 6.3 g/dL (6.3-8.2)
[2020-08-19] MEDS ORDERED: LEVOTHYROXIN100 MCG PO (07:40)
[2020-08-19] MEDS ORDERED: GABAPENTIN300 M2 PO (07:40)
[2020-08-19] MEDS ORDERED: LEVEMIR100 UNIT/M SC (07:41)
[2020-08-19] MEDS ORDERED: ATORVASTATIN CA40 MG PO (07:41)
[2020-08-19] MEDS ORDERED: LOPRESSOR25 MG PO (07:42)
[2020-08-19] MEDS ORDERED: SOD CHLORIDE1 GM PO (07:43)
[2020-08-19] MEDS ORDERED: TAMSULOSIN HCL0.4 MG PO (07:44)
[2020-08-19] MEDS ORDERED: AMARYL4 MG PO (07:44)
[2020-08-19] MEDS ORDERED: ELIQUIS5 MG PO (07:45)
[2020-08-19 08:00] VITALS: BP 123/66
--- NOTE | 2020-08-19 08:00 | NUR ---
REPORT RECEIVED FROM ARYAN ALFONSO. PT RESTING IN BED SEMI FOWLERS; ALERT TO PERSON AND PLACE; OTHERWISE CONFUSED. DENIES PAIN AND SOB. ON AIR[place]ORNE/CONTACT PRECAUTIONS PENDING COVID SWAB; PLACED ON CONTACT PLUS PRECAUTIONS AT THIS TIME FOR CDIFF RESULTS. DENIES PAIN. RESPIRATIONS EVEN AND UNLABORED ON ROOM AIR; SPO2 97%. POC REVIEWED; PT ENCOURAGED TO VERBALIZE CONCERNS; STATES THAT HE WANTS TO GO HOME. SAFETY MEASURES IN PLACE INCLUDING BED ALARM. CALL LIGHT WITHIN REACH.
--- NOTE | 2020-08-19 08:30 | NUR ---
PT ATTEMPTING TO GET OUT OF BED ADAMENT THAT HE WAS LEAVING AND GOING HOME; ASSISTED BACK INTO BED AFTER SEVERAL VERBAL CUES AND INSTRUCTIONS; REMINDED OF BENEFITS TO HOSPITAL STAY. TELE REAPPLIED AFTER PT REMOVED; WARM BLANKET PROVIDED. DR. COATS AND ALVERTO VÁZQUEZ NOW AT BEDSIDE TO DISCUSS POC. CALL LIGHT REVIEWED AND WITHIN REACH.
--- NOTE | 2020-08-19 10:28 | NUR ---
EILEEN, , CALLED FOR UPDATE. QUESTIONS ANSWERED TO SATISFACTION.
[2020-08-19 10:30] VITALS: BP 102/43
--- NOTE | 2020-08-19 12:50 | NUR ---
PT INCONTINENT OF LARGE LOOSE BM; HYGIENE PROVIDED AND PT IMMEDIATELY INCONTINENT OF ANOTHER BM; PT STATES THAT HE DOESN'T REALIZE HE HAS TO MOVE HIS BOWELS UNTIL IT IS HAPPENING. PT UNABLE TO REPORT WHEN HIS MAURER WAS LAST CHANGED; CHRONIC MAURER REMOVED AND NEW 16F MAURER PLACED AT THIS TIME; IMMEDIATE RETURN OF CLEAR YELLOW URINE; LEG STRAP APPLIED TO RIGHT THIGH.
[2020-08-19 15:30] VITALS: BP 107/59
--- NOTE | 2020-08-19 17:00 | NUR ---
IV TO RFA REMOVED WITH CATHETER INTACT AND PT TOLERATED WELL. NEW 22G IV STARTED TO LFA; APPEARS HEALTHY AND FLUSHES. PT HAS NO REQUESTS OR CONCERNS AT THIS TIME. NO FURTHER ATTEMPTS TO LEAVE; COOPERATIVE AND PLEASANT. BED ALARM REMAINS IN PLACE.
--- NOTE | 2020-08-19 18:00 | NUR ---
PT SITTING UP TALKING TO ON THE PHONE. CEFEPIME INFUSING AT THIS TIME.
--- NOTE | 2020-08-19 20:00 | NUR ---
RECIEVED REPORT FROM LEON GARCIA. PT RESTING IN SEMIF OWLERS POSITION UPON ENTERING ROOM. INTRODUCED SELF TO PT AND DISCUSSED POC. PT IS A/O X2 AND ABLE TO VOICE NEEDS. ASSESSMENT AND VITALS COMPLETED.PT PRESENTS WITH TEM OF 99.2, TYLENOL ADMINISTERED. RESPIRATIONS ARE EVEN AND UNLABORED ON ROOM AIR. LUNG SOUNDS ARE CLEAR. HEART RHYTHM IS NORMAL WITH TELE IN PLACE, AFIB 88 PER ER MONTORING. RADIAL PULSES STRONG. PEDAL PULSES WEAK. #22H IN LW FLUSHED, SITE APPEARS HEALTHY AND PATENT. PT DENIES ANY PAIN AT THIS TIME. GULCOSE RESULTING IN 105, NO COVERAGE NEEDED. PT INCONTIENT OF BOWEL AT THIS TIME. ASSISTED PT GETTING CLEANED UP FROM WRITTER AND NORBERT BLOCK. REDDENED BUTTOCK AND SCROTUM NOTED, BARRIER CREAM APPLIED. PT TOLERATED WELL. SKIN REMAINS WARM AND DRY WITH NO BREAKDOWN NOTED. PT PRESENTS WITH CHRONIC MAURER CATHATER IN PLACE. TUBING UN OBSTRUCTED. PT DENIES ANY PAIN AT THIS TIME. ALL SAFETY PRECAUTIONS ARE IN PLACE WITH BED ALARM ACTIVATED WELL CONTINUE TO MONITOR
[2020-08-19 20:10] VITALS: BP 116/47
--- NOTE | 2020-08-19 21:54 | NUR ---
REASSESSMENT OF TEM RESULTING IN 98.3. REPIRATIONS REMAINS EVEN AND UNLABROED ON ROOM AIR. NO SIGNS OF DISTRESS NOTED. ALL SFAETY AND ISOLATION PRECAUTIONS ARE IN PLACE WITH CALL LIGHT IN REACH.W ILL CONTINUE TO MONITOR
--- NOTE | 2020-08-19 23:40 | NUR ---
WRITTER INFORMED BY TELE MONITORING THAT PT HR WAS DROPPING INTO 30'S. PT SLEEPING IN SEMI FOWLERS POSITION. RESPIRATIONS EVEN AND UNLABORED WITH NO DISTRESS. PT EASY TO AWAKEN. PT DENIES ANY DISTRESS. ALL SFATEY PRECAUTIONS REMAINS IN PLACE WITH CONTACT PLUS PRECAUTIONS IN PLACE. WILL CONTINUE TO MONITOR
[2020-08-20] VITALS (8 sets, daily range): BP systolic 91–161; BP diastolic 47–86
--- NOTE | 2020-08-20 00:55 | NUR ---
PT SLEEPING IN SEMI FOWLERS POSITION. RESPIRATIONS ARE EVEN AND UNLABORED ON ROOM AIR. NO SIGNS OF ANY DISTRESS NOTED. ALL SAFTEY AND CONTACT PLUS PRECAUTIONS IN PLACE. WILL CONTINUE TO MONITOR
--- NOTE | 2020-08-20 01:30 | NUR ---
INFORMED THAT PT HR CONTINUE TO DROPING IN 29. PT SLEEPING IN SEMI FOLWERS POSITION. PT EASE TO AWAKEN. PT STATES " IM TIRED!" NO SIGNS OF ANY DISTRESS NOTED. WILL CONTINUE TO MONITOR
--- NOTE | 2020-08-20 01:34 | NUR ---
ATTEMPTED TO CALL MD TO NOTIFY OF PT HR. NO ANSWER. VOICE MAIL LEFT. WILL CONTINUE TO MONITOR
--- NOTE | 2020-08-20 01:36 | NUR ---
DR COATS NOTIFED OF PT LOW HR. NO NEW ORDERS OBTAINED.TELE MONITORING IN PLACE. WILL CONTINUE TO MONITOR
--- NOTE | 2020-08-20 04:08 | NUR ---
PT SLEEPING IN LOW FOLWERS POSITION. RESPIRATIONS ARE EVEN AND UNLABORED ON ROOM AIR. NO SIGNS OF ANY DISTRESS. TELE MONITORING IN PLACE, AFIB 43 PER ER MONITORING. ALL SAFETY PRECAUTIONS ARE IN PLACE WITH CALL LIGHT IN REACH. AIR/CONTACT PLUS PRECAUTIONS IN REACH. WILL CONTINUE TO MONITOR
--- NOTE | 2020-08-20 06:44 | NUR ---
REPORTED GLUCOSE RESULTING 69. ORANGE JUICE WITH SUGAR ADMINISTERED.RESPIRATIONS ARE EVEN AND UNLABORED ON ROOM AIR. MO SIGNS OF DISTRESS NOTED. ALL SAFTEY PRECAUTIONS ARE IN PLACE WITH CALL LIGHT IN REACH. WILL CONTINUE TO MONITOR
--- NOTE | 2020-08-20 08:28 | NUR ---
LAMIN FROM THE LAB CALLED WITH POSITIVE COVID RESULTS
--- NOTE | 2020-08-20 09:06 | NUR ---
ER CALLED AND STATE PATIENT HR IS 39. NURSE CHECKED ON PATIENT AND HE WAS ASLEEP. EASY TO AWAKE. PATIENT STATED HE FELT FINE. GURPREET AWARE AND IS D/C BETA BRIE.
--- NOTE | 2020-08-20 17:32 | NUR ---
PATIENT AWAKE AND BOOSTED AND REPOSITIONED. NO COMPLAINTS OR CONCERNS. CALL FROM X4 TODAY
--- NOTE | 2020-08-20 21:00 | NUR ---
PATIENT RESTING IN BED-AWAKE ALERT AND ORIENTED TO PERSON AND PLACE. PATIENT WAS INCONT OF SMALL AMT OF STOOL. PATIENT WAS CLEANED UP AND BARRIER CREAM APPLIED TO REDDENED BUTTOCKS. TURNED AND REPOSITIONED. PADS WERE CHANGED. PATIENT IN NEG PRESSURE ROOM AND ON ISOLATION FOR COVID WELL C-DIFF. ISOLATION MAINTAINED. TELE MONITOR IN PLACE. SALINE LOCK TO LEFT FOREARM INTACT AND HEALTHY AT THIS TIME. BS-93-NO COVERAGE REQUIRED. HS SNACK WAS PROVIDED-OJ, CRACKERS AND PEANUT BUTTER. MAURER CATH PATENT AND DRAINING YELLOW URINE.SAFETY PRECAUTIONS REINFORCED. CALL LIGHT IN REACH. WILL CONT TO MONITOR.
--- NOTE | 2020-08-21 01:00 | NUR ---
PATIENT RESTING IN BED WITH HOB ELEVATED-APPEARS SLEEPING AT THIS TIME WITH EYES CLOSED. RESP ARE EVEN AND UNLABORED. TELE MONITOR IN PLACE. CALL LIGHT IN REACH. WILL CONT TO MONITOR.
--- NOTE | 2020-08-21 05:14 | NUR ---
PATIENT RESTING IN BED AT THIS TIME. INCONT OF SMALL AMT OF BROWN STOOL. PATIENT WAS CLEANED UP AND BARRIER CREAM APPLIED TO BUTTOCKS. PATIENT REMAINS CONFUSED TO TIME AND PLACE. TELE MONITOR IN PLACE. SALINE LOCK TO LEFT FOREARM INTACT. O2 SAT-98% ON ROOM AIR. BP-175/82, HR-86. MAURER PATENT AND DRAINING YELLOW URINE. COVID AND C-DIFF ISOLATION MAINTAINED. CALL LIGHT IN REACH. WILL CONT TO MONITOR.
[2020-08-21 05:20] VITALS: BP 175/82
[2020-08-21 05:56] LABS: HEMATOCRIT 41.4 % (39.0-50.0); HEMOGLOBIN 13.3 g/dl (14.0-18.0); IMMATURE GRANULOCYTES 0.2 % (0.0-5.0); MEAN CORPUSCULAR HGB 28.9 pG CALC (26.0-32.0); MEAN CORPUSCULAR HGB CONC 32.1 g/dL CAL (32.0-36.0); NEUT# 5.5 thou/uL (1.82-7.42); RED BLOOD COUNT 4.6 mill/uL (4.70-6.10); RED CELL DISTRI WIDTH 13.2 % (11.5-15.5)
[2020-08-21 06:35] LABS: ALBUMIN 2.9 g/dL (3.2-5.0); ALKALINE PHOSPHATASE 65 u/l (38-126); ANION GAP 11 (6-22 (CALC)); BILIRUBIN, TOTAL 0.4 mg/dL (0.0-1.4); BUN 13 mg/dL (8-23); BUN/CREATININE RATIO 12 (12-20 (CALC)); CARBON DIOXIDE 26 mmol/l (22-30); CHLORIDE 105 mmol/l (95-108); CREATININE 1.1 mg/dL (0.7-1.3); GFR > 60 ML/MIN (>=60 (CALC)); GFR FOR AFR.AMER. > 60 ML/MIN (>=60 (CALC)); SGOT/AST 35 u/l (19-48); SODIUM 139 mmol/l (137-146); TOTAL PROTEIN 6.3 g/dL (6.3-8.2)
--- NOTE | 2020-08-21 07:00 | NUR ---
SHIFT CHANGE REPORT, PT AWAKE AND ALERT SITTING UP IN BED,TELE MONITOR IN PLACE, MAURER CATHETER IN PLACE WITH CLEAR ORALIA URINE, DENIES PAIN BUT REQUESTING TO SPEAK WITH SPOUSE, ADVISED STAFF WILL CONTACT HER MASON, CALL RASHEED IN REACH AND BED IN LOWEST POSITION.
[2020-08-21 09:18] VITALS: BP 141/61
[2020-08-21 10:30] VITALS: BP 129/70
--- NOTE | 2020-08-21 12:00 | NUR ---
RESTING IN BED, REFUSED LUNCH MEAL TELLING STAFF THEY CAN HAVE HIS MEAL HE DOESNT WANT IT, ALL OKTHER NEEDS ADDRESSED, CALL KATHYA IN REACH.
[2020-08-21 15:00] VITALS: BP 141/72
--- NOTE | 2020-08-21 15:55 | NUR ---
RESTING IN BED, HAS EPISODES OF MILD ANXIETY AT TIMES WHICH RESOLVES WITH VERBAL CUES, WANTING TO SEE SPOUSE.
--- NOTE | 2020-08-21 19:30 | NUR ---
PATIENT RESTING IN BED AT THIS TIME-AWAKE ALERT AND ORIENTEDX2. PATIENT ANXIOUS TO GO HOME WITH HIS . PATIENT IN NEG PRESSURE ROOM AND ON ISOLATION FOR COVID AND C-DIFF. TELE MONITOR IN PLACE. IV SITE TO LEFT FOREARM INTACT. MAURER CATH PATENT AND DRAINING YELLOW URINE. BED ALARM IN PLACE. CALL LIGHT IN REACH. WILL CONT TO MONITOR.
[2020-08-21 20:30] VITALS: BP 150/89
--- NOTE | 2020-08-21 21:30 | NUR ---
[id number]. NO COVERAGE REQUIRED. HS SNACK OF JUICE AND PEANUT BUTTER CRACKER GIVEN. NO COMPLAINTS EXCEPT HE WANTS TO GO HOME. BED ALARM IN PLACE FOR PATIENT SAFETY. CALL LIGHT IN REACH. WILL CONT TO MONITOR.
--- NOTE | 2020-08-21 23:42 | NUR ---
PATIENT RESTING IN BED POSITIONED ON LEFT SIDE. TELE MONITOR IN PLACE. VANCO PO GIVEN ORDERED FOLLOWED BY SIP OF WATER. MAURER PATENT AND DRAINING YELLOW URINE. TELE MONITOR IN PLACE. BED ALARM IN PLACE FOR PATIENT SAFETY. CALL LIGHT IN REACH. WILL CONT TO MONITOR.
[2020-08-22 00:25] VITALS: BP 153/80
--- NOTE | 2020-08-22 02:53 | NUR ---
PATIENT RESTING IN BED-INCONT OF MODERATE AMT OF LOOSE GREENISH/BROWN STOOL. PATIENT WAS CLEANED UP AND PADS WERE CHANGED. PATIENT TURNED AND REPOSITIONED. BARRIER CREAM APPLIED TO REDDENED BUTTOCKS. MAURER CATH CARE WAS DONE WITH SOAP AND WATER. TELE MONITOR IN PLACE. IV SITE TO LEFT FA INTACT. BED ALARM IN PLACE FOR PATIENT SAFETY. CALL LIGHT IN REACH. WILL CONT TO MONITOR.
[2020-08-22 04:45] VITALS: BP 141/61
--- NOTE | 2020-08-22 05:52 | NUR ---
PATIENT RESTING IN BED POSITIONED ON LEFT SIDE. PATIENT MEDICATED WITH VANCO PO AND SYNTHROID. IV MAXIPIME HUNG ORDERED VIA LEFT FOREARM SITE. TGELE MONITOR IN PLACE. BED ALARM IN PLACE. CALL LIGHT IN REACH. WILL CONT TO TAMIR.
[2020-08-22 07:59] VITALS: BP 158/90
--- NOTE | 2020-08-22 07:59 | NUR ---
RECIEVED REPORT FROM LEON MUHAMMAD. PT SLEEPING IN LOW FOWLERS POSITION UPON ENTERING ROOM. PT EASY TO AWAKEN INTRODUCED SELF TO PT AND DISCUSSED POC.PT IS A/O X2. ASSESSEMENT AND VITALS COMPLETED. RESPIRATIONS ARE EVEN AND UNLABORED ON ROOM AIR. HEART RHYTHM IS NORMAL WITH TELE IN PLACE. BOWEL SOUNDS ARE ACTIVE IN ALL QUADRANTS, LAST REPORTED BM 08/22/2020. RADIAL PULSES STRONG. PEDAL PULSES WEAK. #22G IN LFA FLUSHED, SITE APPEARS HEALTHY AND PATENT. MAURER CATHATER IN PLACE. TUBING UNOBSTUCTED FLOWING WITH GRAVITY. PT DENIES ANY PAIN. GULOCOSE RESUTLING IN 60, ORANGE JUICE PROVIEDED AND BREAKFAST ON THE WAY. PT DENIES ANY PAIN OR DISCOMFORTS AT THIS TIME. ALL SFAETY PRECAUTIONS ARE IN PLACE WITH BED ALARM ACTIVE. AIR AND CONTACT PLUS PRECAUTIONS IN PLACE.WILL CONTINUE TO MONITOR
--- NOTE | 2020-08-22 10:26 | NUR ---
RADIOLOGY AT BEDSIDE
[2020-08-22 10:30] VITALS: BP 119/66
--- NOTE | 2020-08-22 12:09 | NUR ---
PT SLEEPING IN SEMI FOWLERS POSITION. PT EASY TO AWAKEN, RESPIRATIONS ARE EVEN AND UNLABORED ON ROOM AIR. PT DENIES ANY PAIN OR DISCOMFORTS AT SI TIE. MAURER CATHATER REMAINS IN PLACE. TUBING UNOBSTRUCTED FLOWING WITH GRAVITY. TELE MONITORING IN PLACE. ALL SFAETY AND ISOALTION [id number] ARE IN PLACE WITH CALL LIGHT INRE ACH.W ILL CONTINUE TO MONITOR
[2020-08-22] MEDS ORDERED: FIRVANQ25 MG/ML PO (13:21)
[2020-08-22] MEDS ORDERED: FLORASTOR250 M1 PO (13:21)
--- NOTE | 2020-08-22 14:23 | NUR ---
PT AND EDUACTED ON DISCHARGE INSTRUCTIONS. IV REMOVED WITH CATHATER STILL INTACT. TELE MONITORING REMOVED. ER NOTIFIED. AWAITING FOR TRANSPORTATION. ALL SAFETY PRECAUTIONS ARE IN PLACE WIHT CALL LIGHT IN REACH. WILL CONTINHUE TO MONITOR
--- NOTE | 2020-08-22 15:06 | NUR ---
PT TO BE DISCHARGED HOME WITH HOME HEALTH[facility]IA [facility]. PT AND BOTH STATED THAT PT WOULD BE ABLE TO GET INTO HOME WITH THE HELP OF [facility]. STATES " THEY HELPED US LAST TIME." WAITING FOR TRANSPORT AT THIS TIME. WILL CONTINUE TO MONITOR.
--- NOTE | 2020-08-22 15:20 | NUR ---
Discharge instructions given. Patient verbalizes understanding of same. Discharged in stable condition via [facility] Home with staff. All belongings sent with pt. PT DISCHARGED HOME VIA [facility] IN STABLE CONDITION. PT TO RESUME WITH [facility]IOR HOME HEALTH ORDERS. ALL DISCHARGE INSTRUCTIONS AND BELONGINGS LEFT WITH PT
== END 2020-08-22 15:24 | disposition home health service (06) ==
LOC: ED 17:44 → ED-I 18:45 → ED 18:58 → MS2 18:59
PROVIDERS: Family Medicine; Internal Medicine; Nurse Practitioner Family; ADMIT Internal Medicine; ATTEND Internal Medicine
PROC: 0T2BX0Z Change Drainage Device in Bladder, External Approach (ICD-10-PCS; principal; 2020-08-19)
DX: U07.1 COVID-19 (principal); A04.72 Enterocolitis due to Clostridium difficile, not specified as recurrent; R50.9 Fever, unspecified; R53.1 Weakness; N39.0 Urinary tract infection, site not specified; I48.91 Unspecified atrial fibrillation; I10 Essential (primary) hypertension; E11.9 Type 2 diabetes mellitus without complications; N40.0 Benign prostatic hyperplasia without lower urinary tract symptoms; I25.10 Atherosclerotic heart disease of native coronary artery without angina pectoris; E03.9 Hypothyroidism, unspecified; M89.49 Other hypertrophic osteoarthropathy, multiple sites; I25.2 Old myocardial infarction; F17.200 Nicotine dependence, unspecified, uncomplicated; B96.89 Other specified bacterial agents as the cause of diseases classified elsewhere; Z95.1 Presence of aortocoronary bypass graft; Z86.73 Personal history of transient ischemic attack (TIA), and cerebral infarction without residual deficits; Z79.4 Long term (current) use of insulin; Z96.0 Presence of urogenital implants
CPT/HCPCS: J0692; J1650

== ENCOUNTER 2020-08-25 18:00 | Inpatient (IN) | payer MEDICARE, OTHER ==
[~2020-08-25] VITALS: Ht 182.9 cm; Wt 103.0 kg
[~2020-08-25 18:00] MED LIST changes: +AMARYL4 MG PO; +ATORVASTATIN CA40 MG PO; +FIRVANQ25 MG/ML PO; +GABAPENTIN300 M2 PO; +LEVEMIR100 UNIT/M SC; +LEVOTHYROXIN100 MCG PO; +LOPRESSOR25 MG PO; +SOD CHLORIDE1 GM PO
--- NOTE | 2020-08-25 18:00 | NUR ---
PATIENT TO ROOM VIA EMS STRETCHER.
--- NOTE | 2020-08-25 18:45 | NUR ---
PATIENT REPORT TO YARELY EN
[2020-08-25 19:06] LABS: HEMATOCRIT 38.6 % (39.0-50.0); HEMOGLOBIN 12.6 g/dl (14.0-18.0); IMMATURE GRANULOCYTES 0.8 % (0.0-5.0); MEAN CELL VOLUME 89.1 fL CALC (80.0-100.0); MEAN CORPUSCULAR HGB 29.1 pG CALC (26.0-32.0); MEAN CORPUSCULAR HGB CONC 32.6 g/dL CAL (32.0-36.0); NEUT# 3.81 thou/uL (1.82-7.42); RED BLOOD COUNT 4.33 mill/uL (4.70-6.10); RED CELL DISTRI WIDTH 13.1 % (11.5-15.5)
[2020-08-25 19:07] LABS: URINE BILIRUBIN - DIPSTICK NEGATIVE (NEGATIVE); URINE BLOOD DIPSTICK MODERATE (NEGATIVE); URINE COLOR YELLOW; URINE GLUCOSE - DIPSTICK NEGATIVE (NEGATIVE); URINE KETONE TRACE mg/dL (NEGATIVE); URINE LEUK ESTERASE NEGATIVE (NEGATIVE); URINE NITRITE - DIPSTICK NEGATIVE (Negative); URINE PH 5.5 (4.5-8.0); URINE PROTEIN - DIPSTICK 30 mg/dL (NEG-TRACE); URINE SPECIFIC GRAVITY 1.025; URINE UROBILINOGEN - DIPSTICK 0.2 E.U./dL (0.2)
[2020-08-25 19:14] LABS: URINE URIC ACID CRYSTALS MANY lpf
[2020-08-25 19:33] LABS: ALBUMIN 3.5 g/dL (3.2-5.0); ALKALINE PHOSPHATASE 58 u/l (38-126); AMYLASE 48 u/l (30-110); ANION GAP 12 (6-22 (CALC)); BILIRUBIN, TOTAL 0.8 mg/dL (0.0-1.4); BUN 16 mg/dL (8-23); BUN/CREATININE RATIO 15 (12-20 (CALC)); CARBON DIOXIDE 25 mmol/l (22-30); CHLORIDE 103 mmol/l (95-108); CREATININE 1.1 mg/dL (0.7-1.3); GFR > 60 ML/MIN (>=60 (CALC)); GFR FOR AFR.AMER. > 60 ML/MIN (>=60 (CALC)); LIPASE 48 u/l (23-300); POTASSIUM 3.9 mmol/l (3.5-5.1); SGOT/AST 45 u/l (19-48); SODIUM 136 mmol/l (137-146); TOTAL PROTEIN 7.2 g/dL (6.3-8.2)
[2020-08-25 19:36] LABS: INTERNATIONAL NORMALIZED RATIO 1.2 RATIO (0.7-1.3); PROTHROMBIN TIME 11.6 SECONDS (9.0-12.5)
--- NOTE | 2020-08-25 20:30 | NUR ---
NO CHANGE IN EXAM. AWAITING TEST RESULTS.
--- NOTE | 2020-08-25 21:30 | NUR ---
RESTING QUIETLY AWAITING CT.
--- NOTE | 2020-08-25 22:30 | NUR ---
RETURNED FROM X-RAY. NO CHANGE NOTED.
--- NOTE | 2020-08-26 00:42 | NUR ---
HAND OFF REPORT GIVEN TO ALIZE. PATIENT TO INPATIENT TREATMENT ROOM.
[2020-08-26 01:00] VITALS: BP 160/84
--- NOTE | 2020-08-26 01:00 | NUR ---
RECEIVED REPORT FROM NURSE YIMI, PATIENT TRASNPORTED VIA BED, ALERT ORIENTED BUT IS UNABLE TO TELL MEDICATIONS HE IS TAKING AT HOME, EMS SIT G20 ON LAC PATENT FLUSHES WELL, HOOKED TO TELE, PATIENT STATED FREQUEST FALL AT HOME, NOTED TO HAVE BOWEL MOBVEMENT, PATIENT CARE PROVIDED, PATIENT ON ISOLATION FOR COVID AND ON CONTACT PLUS HX CDIFF, MONITOR IN PLACE, CALL LIGHT AT REACH.
--- NOTE | 2020-08-26 04:15 | NUR ---
PATIENT APPEARS TO BE SLEEPING WITH EYES CLOSED, NOT IN DISTRESS MONITOR IN PLACE,CALL LIGHT AT REACH.
[2020-08-26 04:35] VITALS: BP 150/79
[2020-08-26 07:58] VITALS: BP 136/68
--- NOTE | 2020-08-26 09:38 | NUR ---
PT WOULD BENEFIT FROM PT EVALUATION.
--- NOTE | 2020-08-26 10:18 | NUR ---
PATIENT IN BED AT THIS TIME ALERT TO NAME AND PLACE CALL LIGHT WITHIN REACH. BUTTOCKS AND GROIN EXAMIED AT THIS TIME AND FOUND TO BE RED WITHOUT ANY SKIN OPENINGS AT THIS TIME. IV PATENT AND RUNNING WITH .9NL 125ML/HR. SIDERAILS UP AND MONITOR IN PLACE FOR SAFETY WILL CONTINUE TO MONITOR.
[2020-08-26 11:02] VITALS: BP 143/78
--- NOTE | 2020-08-26 12:21 | NUR ---
PATIENT RESTING IN BED DENIES ANY NEEDS. MAURER PATENT AND CONTINUES TO DRAIN CLEAR YELLOW URINE. ALL SAFETY MEASURES ARE IN PLACE CALL LIGHT WITHIN REACH.
[2020-08-26 15:46] VITALS: BP 154/85
--- NOTE | 2020-08-26 15:48 | NUR ---
PATIENT IN BED AT THIS TIME. DENIES ANY NEEDS OR PAIN. MAURER PATENT AND DRAININING YELLOW URINE AT THIS TIME. EMS SITE IN PLACE AND PATIENT REFUSING AT THIS TIME TO ALLOW THIS NURSE TO RESTART IV. WILL CONTINUE TO MONITOR. ALL SAFETY MEASURES ARE IN PLACE CALL LIGHT WITHIN REACH.
--- NOTE | 2020-08-26 20:00 | NUR ---
PT IV SITE REDRESSED, PT TOLERATED WELL. DAY NURSES REPORTED BEING UNABLE TO CHANGE EMS SITE DUE TO PT REFUSAL AND AGITATION. V/S ASSESSED AT THE SAME TIME AND PT ASSISTED POSITIONING IN BED FOR COMFORT. LIGHTS ARE ON LOW, WITH BED ALARM AND CAMERA ON FOR SAFETY MEASURES. NO S/O DISTRESS NOTED, PT ASKING FOR LIGHTS TO BE TURNED OFF AND TO BE LEFT ALONE.
[2020-08-26 20:30] VITALS: BP 150/97
[2020-08-27 00:25] VITALS: BP 160/89
--- NOTE | 2020-08-27 00:48 | NUR ---
V/S HAVE BEEN OBTAINED, IVF REPLENISHED AT THIS TIME. MAURER CATH DRAINING TO GRAVITY DARK YELLOW CLEAR URINE. PT SLIGHTLY CONFUSED OF CIRCUMSTANCES. CAMERA IS ON FOR SAFETY PRECAUTIONS.
--- NOTE | 2020-08-27 04:00 | NUR ---
IV SOUNDED, IV SITE POSITIONAL, PT ARM WAS BENT AT AC. PT STRAIGHTENED ARM OUT, DENIES DISTRESSES.
[2020-08-27 05:32] LABS: HEMATOCRIT 38.9 % (39.0-50.0); HEMOGLOBIN 12.9 g/dl (14.0-18.0); IMMATURE GRANULOCYTES 0.7 % (0.0-5.0); MEAN CELL VOLUME 87.6 fL CALC (80.0-100.0); MEAN CORPUSCULAR HGB 29.1 pG CALC (26.0-32.0); MEAN CORPUSCULAR HGB CONC 33.2 g/dL CAL (32.0-36.0); NEUT# 3.78 thou/uL (1.82-7.42); RED BLOOD COUNT 4.44 mill/uL (4.70-6.10)
[2020-08-27 05:36] VITALS: BP 159/86
--- NOTE | 2020-08-27 05:47 | NUR ---
PT CLEANED OF SCANT SOFT INCONTINENT DARK BROWN STOOL AND REPOSITIONED IN THE BED. PT TALKATIVE AND TOLERATED WELL. BARRIER CREAM APPLIED TO REDNESS TO SCROTUM AND BUTTOCKS. PT MEDICATED W/ANTIBIOTIC THERAPY PO ORDERS PROVIDE.
[2020-08-27 05:54] LABS: ALKALINE PHOSPHATASE 61 u/l (38-126); ANION GAP 12 (6-22 (CALC)); BILIRUBIN, TOTAL 0.7 mg/dL (0.0-1.4); BUN 10 mg/dL (8-23); BUN/CREATININE RATIO 11 (12-20 (CALC)); CARBON DIOXIDE 24 mmol/l (22-30); CHLORIDE 103 mmol/l (95-108); CREATININE 0.9 mg/dL (0.7-1.3); GFR > 60 ML/MIN (>=60 (CALC)); GFR FOR AFR.AMER. > 60 ML/MIN (>=60 (CALC)); MAGNESIUM 1.7 mg/dL (1.6-2.3); POTASSIUM 3.9 mmol/l (3.5-5.1); SGOT/AST 40 u/l (19-48); SODIUM 135 mmol/l (137-146); TOTAL PROTEIN 6.1 g/dL (6.3-8.2)
[2020-08-27 07:30] VITALS: BP 149/69
--- NOTE | 2020-08-27 07:35 | NUR ---
RECIEVED REPORT FROM LEON CASTILLO. PT SLEEPING IN SEMI FOWLERS POSITION UPON ENTERING ROOM. INTRODUCED SELF TO PT AND DISCUSSED POC. PT IS A/O TO SELF. ASSESSMENT AND VITALS OBATINED. TEMP RESULING IN 99.2. BP 149/69, HR 71, O2 95% ON ROOM AIR. RESPIRATIONS ARE EVEN AND UNLABORED. HEART RHYTHM NORMAL WITH TELE IN PLACE. BOWEL SOUNDS ACTIVE IN ALL QUADRANTS, LAST RPEORETD BM 08/27/2020. RADIAL PULSES STRONG. PEDAL PULSES WEAK. #20G IN LAC RUNNING WITH IVF PER ODER. SITE APPEARS HEALTHY AND PATENT WITH NO REDNESS OR SWELLING. GOWNDE SOILED, APPERS FROM POSSIBLE IV LEAKING. PT REFUSED TO LET SHINGLE BOLT CUTTER CHANGE GOWN OR START NEW IV. PT STATED " LEAVE ME ALONE." IVF ON HOLD AT THIS TIME. SHINGLE BOLT CUTTER TO ATTEMPT NEW IV. PT REFUSED TO TURN TO ALLOW WRITTER TO CHECK SKIN INTREGRITEY OF BUTTOCKS.NO BREAKDOWN NOTICE WHEN OBSERVING WHAT WAS POSSIBLE. MAURER CATHATER IN PLACE. TUBING UNKINKED FLOWING WITH GRAVITY. GLUCOSE RESUTLING IN 101, NO COVERAGED ORDER. ALL SFAETY PRECAUTIONS ARE IN PLACE WITH CALL LIGHT IN REACH AND BED ALARM ACTIVATED. AIR/ CONTACT PLUS PRECAUTIONS IN PLCAE. WILL CONTINUE TO MONITOR.
--- NOTE | 2020-08-27 09:32 | NUR ---
TYLENOL ADMINISTERED OF TEMP OF 99.2. #22G IN LFA STARTED. PT TOLERATED WELL. IVF STARTED RUNNING PER ODER, SITE APPEARS HEALTHY AND PATENT. PT REQUEST TO BE CLEAN UP. MEDIA AID TO ASSIST. ALL SAFTEY AND ISOALTION PRECAUTIONS ARE IN PLACE WITH CALL LIGHT IN REACH. WILL CONTINUE TO MONITOR
[2020-08-27 10:40] VITALS: BP 113/52
--- NOTE | 2020-08-27 12:19 | NUR ---
PT SLEEPING IN SEMI FOWLERS POSITION UPON ENTERING ROOM. RESPIRATIONS ARE EVEN AND UNLABORED ON ROOM AIR. REASSESSMENT OF TEMP RESUTLING IN 97.7. IVF INFUSING PER ORDER, SITE APPEARS HEALTHY AND PATENT. MAURER CATHATER STILL IN PLACE. TUBING UNOBSTRUCTED FLOWING WITH GRAVITY. TELE MONITORING IN PLACE, AFIB 65 PER ER MONITORING. SAFTEY AND ISOLATION PRECAUTIONS ARE IN PLACE WITH CALL LIGHT IN REACH. WILL CONTINUE TO MONITOR
[2020-08-27] MEDS ORDERED: NEURONTIN300 MG PO (13:13)
[2020-08-27] MEDS ORDERED: LEVOTHYROXIN100 MCG PO (13:13)
[2020-08-27] MEDS ORDERED: ATORVASTATIN CA40 MG PO (13:14)
[2020-08-27] MEDS ORDERED: LEVEMIR100 UNIT/M SC (13:14)
[2020-08-27] MEDS ORDERED: METOPROL TAR25 MG PO (13:15)
[2020-08-27] MEDS ORDERED: SOD CHLORIDE1 G2 PO (13:16)
[2020-08-27] MEDS ORDERED: TAMSULOSIN HCL0.4 MG PO (13:18)
[2020-08-27] MEDS ORDERED: GLIMEPIRIDE4 MG PO (13:18)
[2020-08-27] MEDS ORDERED: ELIQUIS5 MG PO (13:19)
[2020-08-27] MEDS ORDERED: FIRVANQ25 MG/ML PO (13:20)
[2020-08-27] MEDS ORDERED: FLORASTOR250 M1 PO (13:20)
[2020-08-27 14:45] VITALS: BP 156/77
--- NOTE | 2020-08-27 15:43 | NUR ---
PT RESTING IN SEMI FOWLERS POSITION UPON ENTERING ROOM. RESPIRATIONS ARE EVEN AND UNLABORED ON ROOM AIR. IVF INFUSING PER ORDER, SITE APPEARS HEALTHY AND PATENT. MAURER CATHATER STILL IN PLACE. TUBING UNKINKED, FLOWING WITH GRAVITY. PT DENIES ANY PAIN OR DISCOMFORTS. ALL SAFETY PRECAUTIONS ARE IN PLACE WITH CALL LIGHT IN REACH AND MONITOR IN PLACE. AIR/ CONTACT PLUS PRECAUTIONS IN PLACE.WILL CONTINUE TO MONITOR
--- NOTE | 2020-08-27 17:00 | NUR ---
REPORTED GLUCOSE OF 97. PEANUT BUTTER AND GRAM CRACKERS ADMINISTERED. SPIKE MACHINE FEEDER INFORMED BY LEAD LAYING AND GLUING MACHINE OPERATOR THAT PT HAS REFUSED TO EAT. PT STATES " I, JUST NOT HUNGRY." SPIKE MACHINE FEEDER ENCOURAGED PT TO EAT. ALL SFETY PRECAUTIONS ARE IN PLACE WITH CALL LIGHT IN REACH. WILL CONTINUE TO MONITOR
--- NOTE | 2020-08-27 20:00 | NUR ---
Pt resting in bed without S/S of discomfort. Asked for OJ and water, BS 136.
[2020-08-27 20:05] VITALS: BP 163/96
[2020-08-28] VITALS (7 sets, daily range): BP systolic 96–156; BP diastolic 53–75
--- NOTE | 2020-08-28 | NUR ---
Pt administered medication and given a warm blanket, resting comfortably.
--- NOTE | 2020-08-28 04:00 | NUR ---
Pt resting partially on leftside without S/S of discomfort.
--- NOTE | 2020-08-28 08:41 | NUR ---
RECIEVED REPORT FROM Rg HU RN. PT SITTING UP IN RECYLINER UPON ENTERING ROOM. INTRODUCED SELF TO PT AND DISCUSSED POC. PT IS A/O X1. PT APPEARS VERY AGITATED. ENGAGEMENT DIRECTOR ATEMPTED TO OBTAINED VITALS. PT WOULD NOT KEEP ARM STILL STATING "WHY DONT YO JUST LEAVE ME ALONE." ENGAGEMENT DIRECTOR EXPLAINED THAT MEDIACTION WAS TO BE ADMINISTERED BUT VITALS NEEDED TO BE OBTAINED BEFORE. VITAL RESUTLING IN .PT CONTINUE TO YELL " JUST LEAVE ME ALONE" ENGAGEMENT DIRECTOR TO REASSESS. ALL SFETY PRECAUTIONS ARE IN PLACE WITH CALL LIGHT IN REACH AND CAMERA IN PLACE. WILL CONTINUE TO MONITOR
--- NOTE | 2020-08-28 09:11 | NUR ---
PT STILL RESTING IN CHAIR UPON ENTERING ROOM. MEDICAL TECH INTRODUCED SELF TO PT AND DISCUSSED POC. PT STATED " COME ON SO YOU CAN LEAVE ME ALONE. ASSESSMENT AND VITALS OBTAINED. BP 114/54, HR 94, O2 94% ON ROOM AIR. RESPIRATIONS ARE EVEN AND UNLABORED ON ROOM AIR. HEART RHYTM IS NORMAL WITH TELE IN PLACE, AFIB 74 PE ER MONITORING. BOWEL SOUNDS ACTIVE IN ALL QUADRANTS, LAST REPORTED BM 08/27/2020. RADIAL PULSES STRONG. PEDAL WEAK. #22G IN LFA RUNNING WITH IVF PER ORDER, SITE APPEARS HEALTHY AND PATENT. PT DENIES OF ANY PAIN. SKIN IS WARM AND DRY. REDDENED BUTTOCKS AND SCROTUM NOTED. PT REFUSE TO ALOW MEDICAL TECH TO VISULIZE. ALL SAFETY PRECAUTIONS ARE IN PLACE WIHT CALL LIGHT IN REACH. AIR/CONTACT PLUS PRECAUTIONS ARE ENFORCED. WILL CONTIUE TO MONITOR
--- NOTE | 2020-08-28 11:58 | NUR ---
PT RESTING IN SEMI FPOWLE
--- NOTE | 2020-08-28 11:58 | NUR ---
PT RESTING IN SEMI FOWLERS POSITION. PT IS A/O X1. RESPIRATIONS ARE EVEN AND UNLABORE DON ROOM AIR. PT DENIES OF ANY PAINS. MAURER CATHATER IN PLACE. TUBING UNOBSTRUCTED FLOWING WITH GRAVITY. PT DENIES OF ANY PAINS OR DISCOMFORTS AT THIS TIME. ALL SAFETY AND ISOALTION PRECAUTIONS ARE IN PLACE. WILL CONTINUE TO MONITOR
--- NOTE | 2020-08-28 16:27 | NUR ---
PT SLEEPING IN LOW FOWLERS POSITION. RESPIRATIONS ARE EVEN AND UNLABORED ON ROOM AIR. IVF INFUSING PER ORDER, SITE APPEARS HEALTHY AND PATENT. MAURER CATHATER IN PLACE, TUBING UNOBSTRUCTED FLOWING WITH GRAVITY. NO SIGNS OF ANY PAIN OR DISCOMFORTS. WILL CONTINUE TO MONITOR
--- NOTE | 2020-08-28 21:10 | NUR ---
Pt asked for tylenol due to his legs were hurting him. Nurse assessed pt's legs did not observe any redness or warmth, only some scabs from prior bug bites or scratching. Administered tylenol and pt is resting comfortably.
--- NOTE | 2020-08-29 00:31 | NUR ---
Pt sleeping without S/S of discomfort in semi-fowlers position. Continued 24hr video monitoring for pt saftey.
--- NOTE | 2020-08-29 03:30 | NUR ---
Pt sleeping in semi-fowlers position, no S/S of distress.
[2020-08-29 04:30] VITALS: BP 128/61
[2020-08-29 05:28] LABS: HEMATOCRIT 38.6 % (39.0-50.0); HEMOGLOBIN 12.6 g/dl (14.0-18.0); IMMATURE GRANULOCYTES 1.2 % (0.0-5.0); MEAN CELL VOLUME 89.1 fL CALC (80.0-100.0); MEAN CORPUSCULAR HGB 29.1 pG CALC (26.0-32.0); MEAN CORPUSCULAR HGB CONC 32.6 g/dL CAL (32.0-36.0); NEUT# 3.79 thou/uL (1.82-7.42); RED BLOOD COUNT 4.33 mill/uL (4.70-6.10); RED CELL DISTRI WIDTH 13.7 % (11.5-15.5)
[2020-08-29 05:29] LABS: ALBUMIN 2.9 g/dL (3.2-5.0); ALKALINE PHOSPHATASE 57 u/l (38-126); ANION GAP 9 (6-22 (CALC)); BILIRUBIN, TOTAL 0.7 mg/dL (0.0-1.4); BUN 10 mg/dL (8-23); BUN/CREATININE RATIO 11 (12-20 (CALC)); CARBON DIOXIDE 25 mmol/l (22-30); CHLORIDE 107 mmol/l (95-108); GFR > 60 ML/MIN (>=60 (CALC)); GFR FOR AFR.AMER. > 60 ML/MIN (>=60 (CALC)); POTASSIUM 3.9 mmol/l (3.5-5.1); SGOT/AST 30 u/l (19-48); SODIUM 137 mmol/l (137-146); TOTAL PROTEIN 6.1 g/dL (6.3-8.2)
[2020-08-29 08:00] VITALS: BP 132/56
--- NOTE | 2020-08-29 09:00 | NUR ---
PT IS SEEN DROWSY, SLEEPING IN THE BED BUT EASY TO ROUSE. HE IS ALERT AND ORIENTED X 1-2. LUNGS ARE CLEAR, RA. PT WITH MAURER IN PLACE. PT DID NOT EAT BREAKFAST TODAY, SAID THAT HE WAS NOT HUNGRY. NO ACUTE DISTRESS, NO COMPLAINTS.
[2020-08-29 10:50] VITALS: BP 115/78
--- NOTE | 2020-08-29 13:00 | NUR ---
PT ALSO DID NOT EAT LUNCH, SAYING ONCE AGAIN THAT HE IS NOT HUNGRY. NO CHANGE IN STATUS, PT REMAINS AT REST IN THE BED, NO DISTRESS NOTED.
[2020-08-29 15:38] VITALS: BP 133/77
--- NOTE | 2020-08-29 16:37 | NUR ---
NO PT PROVIDED. PT WITH NURSING COMPLETING ADL'S.
--- NOTE | 2020-08-29 18:34 | NUR ---
PT NOT EATING SUPPER YET, STATES THAT HE WILL GET TO IT EVENTUALLY. NO DISTRESS, NO COMPLAINTS.
[2020-08-29 20:00] VITALS: BP 127/81
--- NOTE | 2020-08-29 21:45 | NUR ---
PT LAYING IN BED AWAKE, LIGHTS OFF. PT STATES "IM READY FOR BREAKFAST", PT RE-ORIENTED TO TIME. ENSURE AND ENSURE CLEAR PROVIDED PT'S FINGERSTICK GLUCOSE 91mg/Dl. PT AGREEABLE. PT AGREEABLE TO FOOD WELL. WILL PROVIDE SNACK. PREVIOSULY REPORTED PTS APPETITTE HAS BEEN POOR. PHYSICAL ASSESSMENT COMPLETE. SCHEDULED MEDICATIONS ADMINISTIRED, SEE E-MAR. PLAN OF CARE REVIEWED. PT VERBALIZES UNDERSTANDING AND DENIES QUESTIONS. WILL NEED FREQUENT REINFORCEMENT PT IS FORGETFUL. PT DENIES FURTHER NEEDS AT THIS TIME. CALL RASHEED WITHIN REACH, AGREES TO CALL PRN.
[2020-08-30] VITALS (8 sets, daily range): BP systolic 103–153; BP diastolic 51–85
--- NOTE | 2020-08-30 02:35 | NUR ---
URINE SAMPLE COLLECTED FROM MAURER AT PROXIMAL PORT AFTER SCRUBBING PORT WITH ALCOHOL SWAB. SENT TO LAB.
--- NOTE | 2020-08-30 02:45 | NUR ---
TEMP 102.3, BLOOD CX X2 AND URINE CX ORDERED. SEE E-MAR FOR APAP ADMINISTRATION.
[2020-08-30 02:48] LABS: URINE BILIRUBIN - DIPSTICK NEGATIVE (NEGATIVE); URINE BLOOD DIPSTICK TRACE-INTACT (NEGATIVE); URINE COLOR YELLOW; URINE GLUCOSE - DIPSTICK >=1000 mg/dL (NEGATIVE); URINE KETONE NEGATIVE (NEGATIVE); URINE PH 5.5 (4.5-8.0); URINE PROTEIN - DIPSTICK NEGATIVE (NEG-TRACE); URINE UROBILINOGEN - DIPSTICK 0.2 E.U./dL (0.2)
--- NOTE | 2020-08-30 04:00 | NUR ---
PT AFEBRILE, TEMP 98.9.
[2020-08-30 05:14] LABS: URINE LEUK ESTERASE SMALL (NEGATIVE)
[2020-08-30 05:15] LABS: URINE BACTERIA MODERATE hpf; URINE EPITHELIAL CELLS FEW EPI/hpf (0-FEW); URINE NITRITE - DIPSTICK NEGATIVE (Negative)
[2020-08-30 05:16] LABS: URINE YEAST MANY hpf
[2020-08-30 05:25] LABS: HEMATOCRIT 35.2 % (39.0-50.0); HEMOGLOBIN 11.6 g/dl (14.0-18.0); MEAN CELL VOLUME 88.2 fL CALC (80.0-100.0); MEAN CORPUSCULAR HGB 29.1 pG CALC (26.0-32.0); RED BLOOD COUNT 3.99 mill/uL (4.70-6.10); RED CELL DISTRI WIDTH 13.2 % (11.5-15.5)
[2020-08-30 05:40] LABS: ANION GAP 10 (6-22 (CALC)); BUN 15 mg/dL (8-23); BUN/CREATININE RATIO 16 (12-20 (CALC)); CARBON DIOXIDE 23 mmol/l (22-30); CHLORIDE 104 mmol/l (95-108); CREATININE 0.9 mg/dL (0.7-1.3); GFR > 60 ML/MIN (>=60 (CALC)); GFR FOR AFR.AMER. > 60 ML/MIN (>=60 (CALC)); POTASSIUM 4.1 mmol/l (3.5-5.1); SODIUM 133 mmol/l (137-146)
--- NOTE | 2020-08-30 06:12 | NUR ---
PT RESTING IN BED, DENIES NEEDS AT THIS TIME. CALL RASHEED WITHIN REACH, AGREES TO CALL PRN.
--- NOTE | 2020-08-30 07:00 | NUR ---
PATIENT IN BED AT THIS TIME ALERT TO SELF. PATIENT DENIES ANY PAIN AND NEEDS AT THIS TIME. PATIENT REPOSITIONED AND CALL LIGHT WITHIN REACH. MAURER CATH PATENT AND DRAING CLEAR YELLOW URINE AT THIS TIME. ALL SAFETY MEASURES ARE IN PLACE SIDERAILS UP X 2.
--- NOTE | 2020-08-30 12:17 | NUR ---
PATIENT IN BED AT THIS TIME EATING LUNCH DENIES ANY NEEDS AT THIS TIME CALL LIGHT WITHIN REACH SIDERAILS UP TIMES 2. ALERT TO SELF.
--- NOTE | 2020-08-30 15:12 | NUR ---
MEDICATED PATIENT AT THIS TIME FOR A TEMP OF 99.3 WITH 650MG OF TYLENOL P.O.
--- NOTE | 2020-08-30 15:23 | NUR ---
Patient is seen for repeated sit to stand which is performed with mod assist of 1. He is able to ambulate about 10 feet with FWW and mod assist of 1 limited by fatigue and feeling of malaise. His Am pac is 10 indicating he would do well in [facility] for focused rehab on fall prevention. Incidentally he tells me his right leg is sore from participating in home health PT several weeks ago.
--- NOTE | 2020-08-30 16:00 | NUR ---
PATIENT IN BED AT THIS TIME. RE-CHECK OF TEMP IS 98.1. PATIENT DENIES ANY PAIN AND IS RESTING. MAURER IS PATENT AND DRAINING YELLOW URINE AT THIS TIME. CALL LIGHT WITHIN REACH SIDERAILS UP X 2.
--- NOTE | 2020-08-30 20:58 | NUR ---
PT RESTING IN BED, NO SIGNS OF DISTRESS NOTED, RESP EVEN AND UNLABORED. PT ALERT AND ORIENTED X2, DISCUSSED POC, PT CONCERNED FOR HIS . ASSESSMENT COMPLETED, BUTT PASTE APPLIED TO BUTTOCK, ASSESSMENT COMPLETED, CALL LIGHT IN REACH,CONTINUE TO MONITOR.
--- NOTE | 2020-08-31 00:06 | NUR ---
PT MEDICATED PER MAR, NO SIGNS OF DISTRESS NOTED, RESP EVEN AND UNLABORED. CALL LIGHT IN REACH,CONTINUE TO MONITOR.
[2020-08-31 04:00] VITALS: BP 130/70
--- NOTE | 2020-08-31 05:22 | NUR ---
PT RESTING IN BED, NO SIGNS OF DISTRESS NOTED, RESP EVEN AND UNLABORED. PT MEDICATED PER MAR. CALL LIGHT IN REACH,CONTINUE TO MONITOR.
[2020-08-31 05:43] LABS: HEMOGLOBIN 12.4 g/dl (14.0-18.0); IMMATURE GRANULOCYTES 0.7 % (0.0-5.0); MEAN CELL VOLUME 87.9 fL CALC (80.0-100.0); MEAN CORPUSCULAR HGB 29.5 pG CALC (26.0-32.0); MEAN CORPUSCULAR HGB CONC 33.5 g/dL CAL (32.0-36.0); NEUT# 4.67 thou/uL (1.82-7.42); RED BLOOD COUNT 4.21 mill/uL (4.70-6.10); RED CELL DISTRI WIDTH 13.6 % (11.5-15.5)
[2020-08-31 05:57] LABS: ALBUMIN 2.8 g/dL (3.2-5.0); ALKALINE PHOSPHATASE 55 u/l (38-126); ANION GAP 9 (6-22 (CALC)); BILIRUBIN, TOTAL 0.8 mg/dL (0.0-1.4); BUN 10 mg/dL (8-23); BUN/CREATININE RATIO 11 (12-20 (CALC)); C-REACTIVE PROTEIN 5.8 mg/dL (0-0.9); CARBON DIOXIDE 26 mmol/l (22-30); CHLORIDE 107 mmol/l (95-108); CREATININE 0.9 mg/dL (0.7-1.3); GFR > 60 ML/MIN (>=60 (CALC)); GFR FOR AFR.AMER. > 60 ML/MIN (>=60 (CALC)); POTASSIUM 4.2 mmol/l (3.5-5.1); SGOT/AST 27 u/l (19-48); SODIUM 138 mmol/l (137-146); TOTAL PROTEIN 5.9 g/dL (6.3-8.2)
[2020-08-31 08:20] VITALS: BP 99/46
--- NOTE | 2020-08-31 08:20 | NUR ---
RECIEVED REPORT FROM ARYAN VELOZ. PT RESITNG IN SEMI FOWLERS POSTIION UPON ENTERING ROOM. INTRODUCED SELF TO PT AND DISCUSSED POC. PT IS A/O X1 BUT ABLE TO VOICE NEEDS.PT APPEARS AGGITATED, STATING "JUST HURRY AND LEAVE ME ALONE" ASSESSMENT AND VITALS OBATINED BP 99/46, HR 93, O2 93% ON ROOM AIR. REPIRATIONS ARE EVEN AND UNLABORED. HEART RHYTHM IS IRREGULAR, AFIB PER ER MONITORING. BOWEL SOUNDS ARE ACTIVE IN ALL QUADRANTS, LAST REPORTED BM 08/30/2020. RADIAL PULSE STRONG. PEDAL PULSES WEAK. #22G IN RFA RUNNING WITH IVF PER ORDER. PT DENIES OF ANY PAIN OR DISCOMFORTS. ALL SAFTEY AND ISOLATION PRECAUTIONS ARE IN PLACE WITH CALL LIGHT IN REACH AND MONITORING IN PLACE. WILL CONTINUE TO MONITOR.
[2020-08-31 09:17] LABS: C. DIFFICILE TOXIN A&B NEGATIVE (NEGATIVE)
[2020-08-31 09:22] VITALS: BP 101/49
--- NOTE | 2020-08-31 09:22 | NUR ---
REASSESSMENT OF BP RESLUTING IN , LOPRESSOR HELD.
[2020-08-31 11:17] VITALS: BP 127/51
--- NOTE | 2020-08-31 11:20 | NUR ---
BIOFIRE OBTAINED AT THIS TIME. PT TOELRATED WELL.
--- NOTE | 2020-08-31 11:28 | NUR ---
PT RESTING IN SEMI FOWLERS POSITION. RESPIRATIONS ARE EVEN AND UNLABROED ON ROOM AIR. IVF DC FROM #22G IN RFA, SITE FLUSHED. APPEAR HEALTHY AND PATENT.TYLENOL ADMINISTEREED FOR TEMP OF 101.1. PT TOLERATED WELL. GLUCOSE RESULTING IN 163, 1 UNIT HUMALOG ADMINISTERED. PT TOLERATED WELL. PT DENIES OF ANY PAIN OR NEEDS AT THIS TIME. PT STATES "GET OUT SO I CAN SLEEP." ALL SAFETY AND ISOLATION PRECAUTIONS ARE IN PLACE. WILL CONTINUE TO MONITOR
--- NOTE | 2020-08-31 12:38 | NUR ---
ARABIC TRANSLATOR RAKAN FROM NATY IN LAB THAT BIOFIRE WAS POSITIVE FOR COVEVELYNE. SAMANTHA,ARIERP NOTSTORMY
--- NOTE | 2020-08-31 12:49 | NUR ---
REASSESSMENT OF TEMP RESULTING IN 98.7
[2020-08-31 15:20] VITALS: BP 141/67
--- NOTE | 2020-08-31 16:42 | NUR ---
PT LYING SUPINE IN BED, AWAKE, ORIENTATED X 2. PT WITH REPORTS OF INCREASED FATIGUE. PT SEEN FOR SIT TO STAND TRANSFERS WITH USE OF WALKER REQUIRING MOD A. PT DID NOT AMBULATE SECONDARY TO INCREASED FATIGUE. PAC 9. LTC RECOMMENDED.
--- NOTE | 2020-08-31 16:42 | NUR ---
PT RESTING N SEMI FOWLERS POSITION WATCHING TV. RESPIRATIONS ARE EVEN AND UNLABROED ON ROOM AIR. PT DENIES ANY DISCOMFORTS OR NEEDS AT THIS TIME. ALL SAFETY PRECAUTIONS ARE IN PLACE WITH CALL LIGHT IN REACH AND MONITORING IN PLACE. ISOLATIONS PRECAUTIONS REMAINS IN PLACE. WILL CONTINUE TO MONITOR
--- NOTE | 2020-08-31 18:37 | NUR ---
ASSEMBLER AND [employer] ATTEMPTED TO START NEW IV. PT REFUSED. #22G IN RFA FLUSHED, SITE APPEARS HEALTHY AND PATENT WITH NO REDNESS NOTED.
[2020-08-31 19:00] VITALS: BP 141/72
--- NOTE | 2020-08-31 20:00 | NUR ---
PHYSICAL ASSESMENT COMPLETE. PT CURRENTLY DENIES PAIN OR DISCOMFORT. SCHEDULED MEDICATIONS AND PRN MEDICATION ADMINISTERED, SEE E-MAR. PT DENIES ANY NEEDS AT THIS TIME. PLAN OF CARE REVIEWED, PT DENIES QUESTIONS, VERBALIZES UNDERSTANDING. ITEMS WITHIN REACH, BED LOCKED IN LOW POSITION W/ BEDRAILS UP X2. CALL RASHEED WITHIN REACH, AGREES TO CALL PRN.
[2020-09-01] VITALS: BP 135/62
--- NOTE | 2020-09-01 00:50 | NUR ---
PT LAYING IN BED WATCHING TV. APPEARS COMFORTABLE AND IN NO DISTRESS. RESPIRATIONS REGULAR AND UNLABORED. ITEMS REMAIN WITHIN REACH, CALL RASHEED REMAINS WITHIN REACH. BED REMAINS LOCKED AND IN LOW POSITION WITH BEDRAILS UP X2. WILL CONTINUE TO MONITOR.
--- NOTE | 2020-09-01 03:51 | NUR ---
PT RESTING IN BED, NO SIGNS OF DISTRESS NOTED, RESP EVEN AND UNLABORED. PT VOICES NO NEEDS OR COMPLAINTS AT THIS TIME. CALL LIGHT IN REACH,CONTINUE TO MONITOR.
[2020-09-01 04:00] VITALS: BP 127/61
[2020-09-01 05:28] LABS: HEMATOCRIT 36.1 % (39.0-50.0); HEMOGLOBIN 11.8 g/dl (14.0-18.0); MEAN CELL VOLUME 89.1 fL CALC (80.0-100.0); MEAN CORPUSCULAR HGB 29.1 pG CALC (26.0-32.0); MEAN CORPUSCULAR HGB CONC 32.7 g/dL CAL (32.0-36.0); RED BLOOD COUNT 4.05 mill/uL (4.70-6.10); RED CELL DISTRI WIDTH 13.3 % (11.5-15.5)
[2020-09-01 05:37] LABS: ANION GAP 7 (6-22 (CALC)); BUN 10 mg/dL (8-23); BUN/CREATININE RATIO 12 (12-20 (CALC)); CARBON DIOXIDE 27 mmol/l (22-30); CHLORIDE 107 mmol/l (95-108); CREATININE 0.9 mg/dL (0.7-1.3); GFR > 60 ML/MIN (>=60 (CALC)); GFR FOR AFR.AMER. > 60 ML/MIN (>=60 (CALC)); POTASSIUM 4.2 mmol/l (3.5-5.1); SODIUM 138 mmol/l (137-146)
[2020-09-01 08:21] VITALS: BP 158/84
--- NOTE | 2020-09-01 08:22 | NUR ---
RECIEVED REPORT FROM LEON SERRANO. PT RESTING IN SEMI FOWLERS POSITION UPON ENTERING ROOM. INTRODUCED SELF TO PT AND DISCUSSED POC. PT IS A/O X1. ASSESSMENT AND VITALS OBTAINED. BP 158/84, HR 81, O2 94% ON ROOM AIR. RESPIRATIONS ARE EVEN AND UNLABORED. HEART RHYTHM IS IRREGULAR, AFIB PER ER MONITORING. BOWEL SOUNDS ARE ACTIVE IN ALL QUADRANTS, LAST RPEORTED BM 08/31/2020. RADIAL AND PEDAL PULSES STRONG. #22G IN RFA FLUSHED, SITE APPEARS HEALTHY AND PATENT. SKIN IS WARM AND DRY. BUTTOCKS IS REDDENED, BUTT PASTE APPLIED. PT TOLERATED WELL. PT DENEIS ANY PAIN OR DISCOMFORT. ALL SFAETY AND ISOALTION PRECAUTIONS ARE IN PLACE WITH CALL LIGHT IN REACH AND MONITORING IN PLACE. WILL CONTINUE TO MONITOR
--- NOTE | 2020-09-01 11:08 | NUR ---
PT AT BEDSIDE WTH PT
--- NOTE | 2020-09-01 11:18 | NUR ---
PT note Patient is seen for treatment as before. Initially the patient tells me he is improved but when up on his feet, he demonstrated signs of orthostatic hypotension and had sympomatic dizziness after walking 10 feet. He is slowly improving and would do well to go to [facility] rehab to regain strenght and decrease his fall risk. His Am Pac is 10
[2020-09-01 11:20] VITALS: BP 140/76
--- NOTE | 2020-09-01 12:05 | NUR ---
REPORTED TEMP OF 99.7. UPON REASSESSMENT TEMP REUSULTED IN 98.4. NO TYLENOL ADMINISTERED. PT SITTING UP IN CHAIR. REPSIRATIONS ARE EVEN AND UNLABORED ON ROOM AIR. PT DENIES ANY PAIN. PT AGGITATED STATING " I JUST WANT TO GO HOME AND GET OUT OF HERE." MOBILE SERVICE RV TECHNICIAN INFORM PT THAT HE WOULD BE DISCHARGED TO [facility] AND SCHEDULED COUNSELOR CAMP TIME WAS 1400. PT STATED "OK THEN HURRY UP."ALL SFAETY PRECAUTIONS ARE IN PLACE WITH CALL LOIGHT IN REACH. WILL CONTINUE TO MONITOR
--- NOTE | 2020-09-01 12:39 | NUR ---
ATTEMPTED TO EDUACTE PT ON DISCHARGE INSTRUCTIONS. PT STATES " I ALREADY KNOW! IM READY TO GO!" CALLED TO EDUCATED ON DISCHARGE INSTRUCTIONS. VERBALIZED UNDERSTANDING. ASKED IF PT HAD CLOTHES OT GO IN. JOURNEYMAN WELDER CONFIRMED THAT PT DID HAVE CLOTHES. ALL SAFETY PRECAUTIONS REMAINS IN PLACE WITH MONITORING IN PLACE. WILL CONTINUE TO MONITOR
--- NOTE | 2020-09-01 14:46 | NUR ---
IV REMOVED WITH [facility]ATER STILL INTACT. PT TOELRATED WELL. TELE MONITRING REMOVED. ER NOTIFIED. CATHATER LEG STRAP REPLACED. PT TO BE DISCHARGED WITH [facility]. TUBING REMAINS UNOBSTRUCTED FLOWING WITH GRAVITY. WAITING FOR TRANSPORTATION AT THIS TIME.
--- NOTE | 2020-09-01 14:50 | NUR ---
Discharge instructions given. Patient verbalizes understanding of same. Discharged in stable condition via Medical Transport to *Other with staff. All belongings sent with pt. PT DISCHARGED TO [facility] VIA MEDICAL TRANSPORT IN STABLE CONDITION. PT DSICHARGE WITH ALL BELONGINGS AND DISCHARGE PAPERWORK
--- NOTE | 2020-09-01 14:57 | NUR ---
REPORT CALLED TO NURSE AT [facility] [place].
== END 2020-09-01 14:45 | DRG 178 ==
LOC: ED 18:00 → ED-I 23:40 → ED 08-26 00:20 → MS2 08-26 00:21
PROVIDERS: Internal Medicine; Nurse Practitioner; ADMIT Internal Medicine; ATTEND Internal Medicine
DX: U07.1 COVID-19 (principal); A04.72 Enterocolitis due to Clostridium difficile, not specified as recurrent; I48.91 Unspecified atrial fibrillation; R33.9 Retention of urine, unspecified; I25.10 Atherosclerotic heart disease of native coronary artery without angina pectoris; I10 Essential (primary) hypertension; E11.9 Type 2 diabetes mellitus without complications; M25.551 Pain in right hip; E03.9 Hypothyroidism, unspecified; M89.49 Other hypertrophic osteoarthropathy, multiple sites; Z91.81 History of falling; Z79.01 Long term (current) use of anticoagulants; Z79.4 Long term (current) use of insulin; Z79.899 Other long term (current) drug therapy; Z95.1 Presence of aortocoronary bypass graft; Z96.653 Presence of artificial knee joint, bilateral; Z86.73 Personal history of transient ischemic attack (TIA), and cerebral infarction without residual deficits; I25.2 Old myocardial infarction; Z87.891 Personal history of nicotine dependence
CPT/HCPCS: G0378